=== PATIENT | male | born 1990 | race Caucasian/White ===

== ENCOUNTER 2016-05-12 07:37 | Inpatient (IN) | payer OTHER ==
[2016-05-12] VITALS (8 sets, daily range): BP systolic 131–162; BP diastolic 68–95; PULSE 102–127; RESP 18–21; TEMP 99.3–102.5; O2SAT 93–100
[~2016-05-12] VITALS: Ht 180.3 cm; Wt 169.0 kg
[~2016-05-12 07:37] MED LIST: AMOX500T2 PO
[2016-05-12] MEDS ORDERED: RELEMIS INH (07:57)
[2016-05-12] MEDS ORDERED: AMOX500C PO (07:57)
[2016-05-12] MEDS ORDERED: ACETAMINOPHEN 325 MG TAB PO ONE (08:15)
[2016-05-12] MEDS ORDERED: methylPREDNISolone SOD SUCC 125 MG/2 ML VIAL IV ONE (08:15)
[2016-05-12] MEDS ORDERED: SODIUM CHLOR 0.9% 1000 ML INJ 1,000 ML IV ONE ×3 (08:15)
[2016-05-12] MEDS ORDERED: SODIUM CHLORIDE 0.9% FLUSH 5 ML FLUSH IVF PRN (08:15)
[2016-05-12] MEDS ORDERED: cefTRIAXone INJ 2,000 MG in SODIUM CHLORIDE 0.9% INJ 100 ML IV ONE (08:15)
[2016-05-12] MEDS ORDERED: AZITHROMYCIN INJ 500 MG in SODIUM CHLOR 0.9% 250 ML INJ 250 ML IV ONE (08:15)
--- NOTE | 2016-05-12 08:19 | PD ---
HPI . Fever Chief Complaint: Cold / Flu Symptoms Time Seen by Provider: 08:04 Travel History International Travel<30 days: No Contact w/Intl Traveler<30days: No Traveled to known affect area: No History of Present Illness HPI Patient presents with a one-week history of fever, myalgias, congestion. He has had a cough. He states that he is very thirsty and has been having diarrhea. His mother reports that he was seen at [facility] [place] [facility] 5 days ago and was tested for flu. Flu test was negative. He was started on amoxicillin. Symptoms have persisted so his mother brings him here today for evaluation. [facility], LAT[facility] Past Medical History Medical History: Denies Significant Hx Blood Disorders: No Diminished Hearing: No Respiratory: Yes (PNA) Immunizations Current: Yes Tetanus Vaccination: < 5 Years Influenza Vaccination: No Past Surgical History Surgical History: No Previous Surgery Social History Alcohol Use: Yes (Occ.) Tobacco Use: Yes (03/09 PPD) Substance Use: Yes (Marijuana) Allergies-Medications (Allergen,Severity, Reaction): Coded Allergies: No Known Allergies (Verified , 05/12/16) Reported Meds & Prescriptions Reported Meds & Active Scripts Active Reported Relenza Inhalation Powder Blister (Zanamivir) 5 Mg/Blister Cap 10 Mg INH Q12HR Two inhalations = 10 mg Amoxicillin 500 Mg Cap 500 Mg PO TID Review of Systems Except as stated in HPI: all other systems reviewed are Neg General / Constitutional: Positive: Fever, Chills HENT: Positive: Congestion Respiratory: Positive: Cough, Shortness of Breath Gastrointestinal: Positive: Diarrhea Musculoskeletal: Positive: Myalgias Physical Exam Narrative GENERAL: Patient is awake and alert and in no acute distress. SKIN: Warm and dry. HEAD: Atraumatic. Normocephalic. EYES: Pupils equal and round. ENT: No nasal bleeding or discharge. Mucous membranes pink but dry. NECK: Trachea midline. Neck is supple. CARDIOVASCULAR: Tachycardic. Normal heart sounds. RESPIRATORY: No accessory muscle use. He has diffuse expiratory wheezing. GASTROINTESTINAL: Abdomen soft, non-tender, nondistended. MUSCULOSKELETAL: No obvious deformities. No edema. NEUROLOGICAL: Awake and alert. No obvious cranial nerve deficits. Motor grossly within normal limits. Normal speech. PSYCHIATRIC: Appropriate mood and affect; insight and judgment normal. Data Data Last Documented VS Vital Signs Date Time Temp Pulse Resp B/P Pulse Ox O2 Delivery O2 Flow Rate FiO2 3/7/17 10:23 102.5 118 20 162/76 97 Room Air Orders Basic Metabolic Panel (Bmp) (05/12/16 08:10) Complete Blood Count With Diff (05/12/16 08:10) Lactic Acid Sepsis Protocol (05/12/16 08:10) Urinalysis - C+S If Indicated (05/12/16 08:10) Blood Culture (05/12/16 08:10) Sputum Culture And Gram Stain (05/12/16 08:10) Chest, Single Ap (05/12/16 08:10) Iv Access Insert/Monitor (05/12/16 08:10) Oximetry (05/12/16 08:10) Sodium Chloride 0.9% Flush (Ns Flush) (05/12/16 08:15) Ceftriaxone Inj (Rocephin Inj) (05/12/16 08:15) Azithromycin Inj (Zithromax Inj) (05/12/16 08:15) Acetaminophen (Tylenol) (05/12/16 08:15) Albuterol-Ipratropium Neb (Duoneb Neb) (05/12/16 08:15) Methylprednisolone So Succ Inj (Solumedr (05/12/16 08:15) Sodium Chlor 0.9% 1000 Ml Inj (Ns 1000 M (05/12/16 08:15) Sodium Chlor 0.9% 1000 Ml Inj (Ns 1000 M (05/12/16 08:15) Sodium Chlor 0.9% 1000 Ml Inj (Ns 1000 M (05/12/16 08:15) Vital Signs (05/12/16 09:54) Oxygen Administration (05/12/16 09:56) Ibuprofen (Motrin) (05/12/16 10:30) Admit Order (Ed Use Only) (05/12/16 10:53) Labs Laboratory Tests Test 05/12/16 05/12/16 08:35 09:40 White Blood Count 7.8 TH/MM3 Red Blood Count 5.73 MIL/MM3 Hemoglobin 16.2 GM/DL Hematocrit 48.9 % Mean Corpuscular Volume 85.4 FL Mean Corpuscular Hemoglobin 28.3 PG Mean Corpuscular Hemoglobin 33.2 % Concent Red Cell Distribution Width 12.6 % Platelet Count 102 TH/MM3 Mean Platelet Volume 11.4 FL Neutrophils (%) (Auto) 82.0 % Lymphocytes (%) (Auto) 10.5 % Monocytes (%) (Auto) 5.4 % Eosinophils (%) (Auto) 0.0 % Basophils (%) (Auto) 2.1 % Neutrophils # (Auto) 6.4 TH/MM3 Lymphocytes # (Auto) 0.8 TH/MM3 Monocytes # (Auto) 0.4 TH/MM3 Eosinophils # (Auto) 0.0 TH/MM3 Basophils # (Auto) 0.2 TH/MM3 CBC Comment AUTO DIFF Differential Comment AUTO DIFF CONFIRMED Sodium Level 131 MEQ/L Potassium Level 3.9 MEQ/L Chloride Level 95 MEQ/L Carbon Dioxide Level 27.4 MEQ/L Anion Gap 9 MEQ/L Blood Urea Nitrogen 11 MG/DL Creatinine 1.00 MG/DL Estimat Glomerular Filtration 93 ML/MIN Rate Random Glucose 110 MG/DL Lactic Acid Level 1.1 mmol/L Calcium Level 8.3 MG/DL Urine Collection Type CLEAN CATCH Urine Color DARK-YELLOW Urine Turbidity CLEAR Urine pH 6.0 Urine Specific [place] 1.032 Urine Protein 100 mg/dL Urine Glucose (UA) NEG mg/dL Urine Ketones 15 mg/dL Urine Occult Blood LARGE Urine Nitrite NEG Urine Bilirubin NEG Urine Leukocyte Esterase NEG Urine RBC 0-3 /hpf Urine WBC 0-2 /hpf Urine Squamous Epithelial 0-5 /hpf Cells Urine Amorphous Sediment MOD Microscopic Urinalysis Comment CULT NOT INDICATED MDM Medical Decision Making Medical Screen Exam Complete: Yes Emergency Medical Condition: Yes Differential Diagnosis Differential diagnosis includes but is not limited to viral respiratory illness , bronchitis, pneumonia, allergies, CHF, asthma/COPD. Narrative Course Patient presents with a one-week history of fever, myalgias, cough and chest congestion and diarrhea. I will treat him presumptively for pneumonia with Rocephin and Zithromax. He will be given nebs and Solu-Medrol for the wheezing. He will be given 3 L of IV fluids. Chest x-ray to my interpretation shows a right lower lobe infiltrate. Last Impressions Chest X-Ray 05/12/16 0810 Signed Impressions: Service Date/Time: Thursday, May 12, 2016 08:37 - CONCLUSION: Right basilar pneumonia. Treatment and followup to resolution recommended. Grzegorz Villeda MD Sepsis Criteria SIRS Criteria (2 or more): Temp > 100.9 or < 96.8, Heart rate over 90, RR > 20 or PaCO2 < 32 Sepsis Criteria (SIRS+source): Infect source susp/known Criteria Outcome: Meets SIRS criteria, Meets sepsis criteria Physician Communication Physician Communication Discussed with Dr. Islas who asks that I admit the patient to Dr. Mishra. Diagnosis Primary Impression: Sepsis Qualified Code: A41.9 - Sepsis, due to unspecified organism Additional Impression: Pneumonia Qualified Code: J18.1 - Pneumonia of right lower lobe due to infectious organism Admitting Information Admitting Physician Requests: Admit Condition: Stable Luisa Villar MD May 12, 2016 08:19
[2016-05-12] MEDS: RESP: ALBUTEROL 2.5 MG/IPRATROPIUM 0.5 MG NEB (SCH) INH (08:20)
[2016-05-12 08:44] LABS: AUTOMATED NEUTROPHIL # 6.4 TH/MM3 (1.8-7.7); BASOPHIL # 0.2 TH/MM3 (0-0.2); BASOPHIL % 2.1 % (0.0-2.0); HEMATOCRIT 48.9 % (39.0-51.0); LYMPH % 10.5 % (9.0-44.0); LYMPHOCYTE # 0.8 TH/MM3 (1.0-4.8); MEAN CELL VOLUME 85.4 FL (80.0-100.0); MEAN CORPUSCULAR HEMOGLOBIN 28.3 PG (27.0-34.0); MEAN CORPUSCULAR HGB CONC 33.2 % (32.0-36.0); MONO % 5.4 % (0.0-8.0); PLATELET COUNT 102 TH/MM3 (150-450); RED BLOOD COUNT 5.73 MIL/MM3 (4.50-5.90); RED CELL DISTRIBUTION WIDTH 12.6 % (11.6-17.2); WHITE BLOOD COUNT 7.8 TH/MM3 (4.0-11.0)
[2016-05-12 08:46] LABS: HEMO FLAGS AUTO DIFF
[2016-05-12 08:49] LABS: POTASSIUM 3.9 MEQ/L (3.5-5.1)
[2016-05-12 08:52] LABS: BICARBONATE 27.4 MEQ/L (21.0-32.0)
[2016-05-12 09:12] LABS: SCAN/DIFF AUTO DIFF CONFIRMED
--- NOTE | 2016-05-12 09:12 | RADHPO ---
EXAM DATE/TIME: 05/12/2016 08:37 [facility] COMPARISON: No previous studies available for comparison. INDICATIONS : Fever/body ache. MEDICAL HISTORY : None. SURGICAL HISTORY : None. ENCOUNTER: Initial ACUITY: 4 - 6 days PAIN SCORE: 0/10 LOCATION: Bilateral chest FINDINGS: A single view of the chest demonstrates right basilar consolidation. Left lung clear. Heart normal in size. The cardiomediastinal contours are unremarkable. Osseous structures are intact. CONCLUSION: Right basilar pneumonia. Treatment and followup to resolution recommended. Grzegorz Villeda MD on May 12, 2016 at 9:10 Board Certified Radiologist. This report was verified electronically.
[2016-05-12 09:48] LABS: BLOOD, URINE LARGE (NEG); GLUCOSE,URINE NEG (NEG); KETONE, URINE 15 mg/dL (NEG); NITRITE,URINE NEG (NEG)
[2016-05-12 09:51] LABS: METHOD OF COLLECTION CLEAN CATCH; URINE COLOR DARK-YELLOW (YELLW/STRAW)
[2016-05-12 09:52] LABS: COMMENT (UR) CULT NOT INDICATED; CULTURE IF INDICATED CULT NOT INDICATED; RBC, URINE 0-3 /hpf (0-3); SQUAMOUS EPITHELIAL CELL URINE 0-5 /hpf (0-5); WBC, URINE 0-2 /hpf (0-5)
[2016-05-12] MEDS ORDERED: IBUPROFEN 800 MG TAB PO ONE (10:30)
[2016-05-12] MEDS ORDERED: SODIUM CHLORIDE 0.9% FLUSH 5 ML FLUSH FLUSH PRN (11:00)
[2016-05-12] MEDS ORDERED: NALOXONE HCL 0.4 MG/ML AMP IV PRN (11:00)
[2016-05-12] MEDS: PIPERACIL-TAZO 3.375 GM PREMIX 50 ML IV SCH ×3 (12:55→22:05)
[2016-05-12] MEDS: HEPARIN SODIUM - SQ 10,000 UNITS/ML VIAL SQ SCH ×2 (12:56→22:05)
[2016-05-12] MEDS: SODIUM CHLOR 0.9% 1000 ML INJ 1,000 ML IV SCH ×2 (12:56→21:12)
[2016-05-12] MEDS: AZITHROMYCIN INJ 500 MG in SODIUM CHLOR 0.9% 250 ML INJ 250 ML IV SCH (13:54)
[2016-05-12] MEDS: SODIUM CHLORIDE 0.9% FLUSH 5 ML FLUSH FLUSH SCH (20:00)
[2016-05-12] MEDS: RESP: ALBUTEROL 2.5 MG/3 ML NEB (SCH) NEB (20:00)
--- NOTE | 2016-05-12 20:43 | MH ---
cc: JUANA LEWIS DATE OF ADMISSION 05/12/2016 HISTORY OF PRESENT ILLNESS Mr. Rodrigues is a 25-year-old gentleman who presented to the emergency room for worsening malaise, fever and congestion. He states that last week he developed body aches and fevers, some congestion and some cough. He went to a walk-in clinic where he was told he had a flu and prescribed amoxicillin and Relenza. He states that he has been taking the medication for the last several days but did not improve. His symptoms, his fevers persisted. He was very weak. He states for the last four days he has not been strong enough to really eat that much. He has been coughing a little bit. He states he has had some nasal congestion as well as muscle pain. PAST MEDICAL HISTORY Significant for asthma as a child. PAST SURGICAL HISTORY Denies. ALLERGIES HE DENIES. MEDICATIONS Just the Relenza and the amoxicillin. SOCIAL HISTORY Habits, he rarely consumes alcohol. He smokes a pack in approximately two days. He will occasionally use marijuana. Social, he is involved in a relationship. He works as a bakery chef. Unfortunately he has had to be out of work for a work and that has him concerned. REVIEW OF SYSTEMS See HPI. He denies any weight change. He states his appetite was good until last four days when he was just too weak to eat. No trouble swallowing. No abdominal pain. No change in his bowel movements. He denies any chest pain or palpitations. He told me he did not have any wheezing with this, but when he received a breathing treatment downstairs it did seem to help him. He states he has been urinating well. There has not been a decrease in his urination. FAMILY HISTORY Noncontributory. PHYSICAL EXAMINATION VITAL SIGNS: Temperature is 99.3, pulse of 107, respirations 18, blood pressure is 153/95, pulse ox is 94% on room air. GENERAL: He is lying in the hospital bed. He looks fairly comfortable. At this point he tells me feels much better than when he came in. HEENT: He is normocephalic and traumatic. EOM is intact. He has a clear oral mucosa. NECK: His neck is supple. I could palpate no adenopathy. LUNGS: He has coarse lung sounds. I do not hear any obvious rhonchi or rales. HEART: His heart is tachycardiac. ABDOMEN: His abdomen is globose. He has got good bowel sounds. No rebound or guarding. EXTREMITIES: Show no clubbing, cyanosis or edema. LABORATORY DATA Lab work that was done when he came in showed a white count of 7.8, hemoglobin of 16.2, hematocrit of 48.9, platelet count was 102. Sodium was 131 with a potassium of 3.9, BUN was 11, creatinine was 1.0. UA shows large amount of blood. Cultures were done. IMAGING Chest x-ray showed a right basilar consolidation otherwise was normal. ASSESSMENT/PLAN A 25-year-old gentleman presenting with pneumonia. At this point he has been started on antibiotics. We will hydrate him overnight with IV fluids. Given his history of asthma and his lung sounds we will go ahead and put him on albuterol q.6h. Further recommendations as the case develops. MD RADHA Toure/KANDICE /8:06 PM /8:28 PM
[2016-05-12] MEDS ORDERED: [UNRECOGNIZED DRUG - OTHER] INH SCH (21:00)
[2016-05-12] MEDS: IBUPROFEN 800 MG TAB PO PRN (22:04)
[2016-05-12] MEDS: TEMAZEPAM 15 MG CAP PO PRN (22:08)
[2016-05-13] VITALS: BP 148/86; PULSE 80; RESP 20; TEMP 99.8; O2SAT 99
[2016-05-13 04:00] VITALS: BP 153/80; PULSE 96; RESP 20; TEMP 98.5
[2016-05-13] MEDS: PIPERACIL-TAZO 3.375 GM PREMIX 50 ML IV SCH ×4 (04:29→22:22)
[2016-05-13 06:30] LABS: AUTOMATED NEUTROPHIL # 7.6 TH/MM3 (1.8-7.7); HEMATOCRIT 45.9 % (39.0-51.0); LYMPH % 11.1 % (9.0-44.0); MEAN CELL VOLUME 86.5 FL (80.0-100.0); MEAN CORPUSCULAR HEMOGLOBIN 28.4 PG (27.0-34.0); MEAN CORPUSCULAR HGB CONC 32.8 % (32.0-36.0); MONO % 5.4 % (0.0-8.0); NEUT % 83.5 % (16.0-70.0); PLATELET COUNT 114 TH/MM3 (150-450); RED BLOOD COUNT 5.31 MIL/MM3 (4.50-5.90); RED CELL DISTRIBUTION WIDTH 12.3 % (11.6-17.2); WHITE BLOOD COUNT 9.1 TH/MM3 (4.0-11.0)
[2016-05-13 06:40] LABS: HEMO FLAGS DIFF FINAL
[2016-05-13 06:46] LABS: BICARBONATE 29.8 MEQ/L (21.0-32.0)
[2016-05-13 06:50] LABS: INDIRECT BILIRUBIN 0.5 MG/DL (0.0-0.8); TOTAL BILIRUBIN ADULT 0.7 MG/DL (0.2-1.0)
[2016-05-13] MEDS: SODIUM CHLOR 0.9% 1000 ML INJ 1,000 ML IV SCH ×2 (06:56→23:08)
[2016-05-13] MEDS: RESP: ALBUTEROL 2.5 MG/3 ML NEB (SCH) NEB ×3 (07:18→19:47)
--- NOTE | 2016-05-13 07:43 | MB ---
cc: HANS STONE MD, MAZHAR MD DATE OF CONSULTATION: 05/12/[address] Worley REASON FOR CONSULTATION Pneumonia, tachypnea, tachycardia. HISTORY OF PRESENT ILLNESS This is a 25-year-old white male who presented to the emergency department with cold and flu symptoms including fever, myalgias, cough, shortness of breath. The patient states that about a week ago he started feeling ill with achiness of the joints. He developed cough and had fever and sweats. He presented to the emergency department for evaluation today and had a temperature of 102.5 degrees, heart rate 118 and regular rhythm 20. Chest x-ray was performed which showed right basilar infiltrate. The patient states that he had coughed up initially light green sputum and then it turned brown in color. He has upper airway congestion as well. He was admitted and started on IV antibiotics. Sputum culture has been obtained and the result is not yet available. The Gram stain shows many white blood cells. Blood culture is pending. His white count is 7.8 and the differential shows 82% neutrophils. The patient tells me that currently he feels a lot better than he did five days ago. He appears somewhat tachypneic and had to talk very slowly because of mild respiratory discomfort during my interview. PAST MEDICAL HISTORY 1. Asthma. 2. History of pneumonia at age [age]. PAST SURGICAL HISTORY No previous surgery. ALLERGIES No known drug allergies. MEDICATIONS 1. Azithromycin. 2. Piperacillin/tazobactam. SOCIAL HISTORY The patient smokes a half pack of cigarettes a day. Occasional alcohol. Positive marijuana use. FAMILY HISTORY Noncontributory. REVIEW OF SYSTEMS GENERAL: Significant for fever and chills. HEAD, EYES, EARS, NOSE, AND THROAT: No headache. No visual blurring or diplopia. No difficulty swallowing or soreness of the throat. No nasal drainage. NECK: No pain or swelling. CARDIOVASCULAR: No palpitation or chest pain. RESPIRATORY: Significant for cough with sputum production and mild shortness of breath. GASTROINTESTINAL: No nausea, vomiting, abdominal pain or diarrhea. GENITOURINARY: No urgency, frequency or dysuria. HEMATOPOIETIC: No easy bruising or bleeding. ENDOCRINE: No polyuria or polydipsia. INTEGUMENTARY: No skin rash or itching. MUSCULOSKELETAL: Significant for joint aches and pains. NEUROLOGIC: No problems with coordination and no tremors. PSYCHIATRIC: No problems with mentation. The patient has clear mentation and appropriate affect. PHYSICAL EXAMINATION GENERAL: This is a morbidly obese male who is in no acute distress. He is alert and oriented. VITAL SIGNS: Temperature 99.7, blood pressure 131/95, respirations 18, heart rate 102. HEENT: Head is atraumatic. Extraocular movements grossly intact. Pupils reactive to light. No icterus. Oropharynx moist mucosa without any visible lesions. No thrush. NECK: Supple without adenopathy. LUNGS: Coarse rhonchi bilateral with mild wheezing. HEART: Regular rate and rhythm without audible murmurs, rubs or gallops. ABDOMEN: Obese. Positive bowel sounds. Soft. No tenderness appreciated. No palpable masses. RECTAL: Not performed. EXTREMITIES: No clubbing, cyanosis or edema. SKIN: Warm and moist. PSYCHIATRIC: The patient is calm and cooperative and has appropriate affect. LABORATORY DATA WBC 7.8, platelet count 102, hemoglobin 16.2, 82% neutrophils, 10% lymphocytes. Creatinine 1.0, BUN 11, estimated GFR 93, sodium 131. IMPRESSION 1. Pneumonia involving the right lung base. 2. Sepsis indicated by fever, tachycardia, tachypnea, potential source of infection with pneumonia being the source. RECOMMENDATIONS 1. Continue azithromycin. 2. Continue piperacillin/tazobactam. 3. Monitor sputum culture. 4. Monitor clinical response to treatment. 5. Monitor blood cultures. Thank you for this consultation. The patient's progress will be monitored and further recommendations will be given upon follow-up. Hans Stone MD FD/KATHERINE /4:55 PM /7:08 AM
[2016-05-13 08:00] VITALS: BP 164/68; PULSE 107; RESP 20; TEMP 99.1; O2SAT 92
[2016-05-13] MEDS: SODIUM CHLORIDE 0.9% FLUSH 5 ML FLUSH FLUSH SCH ×2 (09:00→21:00)
[2016-05-13] MEDS: HEPARIN SODIUM - SQ 10,000 UNITS/ML VIAL SQ SCH ×2 (11:00→22:22)
--- NOTE | 2016-05-13 11:42 | HHI.PR ---
Subjective Remarks Feeling better wants to go home. Objective Vitals Vital Signs Date Time Temp Pulse Resp B/P Pulse Ox O2 Delivery O2 Flow Rate FiO2 05/13/16 08:00 99.1 107 20 164/68 92 05/13/16 04:00 98.5 96 20 153/80 05/13/16 00:00 99.8 80 20 148/86 99 05/12/16 20:00 102.3 110 20 156/85 100 05/12/16 20:00 127 05/12/16 16:00 99.3 107 18 153/95 94 05/12/16 12:41 99.7 102 18 131/95 96 05/12/16 05/12/16 05/13/16 15:00 23:00 07:00 Intake Total 3590 ml 800 ml Balance 3590 ml 800 ml Intake Oral 240 ml IV Total 3350 ml 800 ml # Voids 2 # Bowel Movements 1 Result Diagram: 05/13/16 0535 05/13/16 0535 Imaging Last Impressions Chest X-Ray 05/12/16 0810 Signed Impressions: Service Date/Time: Thursday, May 12, 2016 08:37 - CONCLUSION: Right basilar pneumonia. Treatment and followup to resolution recommended. Grzegorz Villeda MD Objective Remarks Sitting at side of bed restless, nad lungs cta Heart slightly tachy ext no edema A/P Problem List: (1) Pneumonia Status: Acute Plan: clinically feeling better and responding to antibiotics.cont for now and monitor fever curve Discharge Planning discharge in next day or so pending response to treatment Problem Qualifiers (1) Pneumonia: Qualified Code: J18.1 - Pneumonia of right lower lobe due to infectious organism Salena Ordaz MD May 13, 2016 11:42
[2016-05-13 12:00] VITALS: BP 159/80; PULSE 102; RESP 20; TEMP 98.1; O2SAT 91
[2016-05-13] MEDS: AZITHROMYCIN INJ 500 MG in SODIUM CHLOR 0.9% 250 ML INJ 250 ML IV SCH (14:09)
--- NOTE | 2016-05-13 15:53 | HHI.IDPN ---
Note Infectious Disease Note Patient now coughing up yellow/green sputum. Still SOB. Became dyspneic when he sat up in bed. PAST MEDICAL HISTORY 1. Asthma. 2. History of pneumonia at age [age]. PAST SURGICAL HISTORY No previous surgery. ALLERGIES No known drug allergies. MEDICATIONS 1. Azithromycin. 2. Piperacillin/tazobactam. Current Medications Medications (Trade) Dose Ordered Sig/Lucinda Route PRN Reason Start Time Stop Time Status Last Admin Dose Admin IV Flush (NS Flush) 2 ml UNSCH PRN IVF FLUSH AFTER USING IV ACCESS 05/12/16 08:15 Patient Own Medication PT OWN MED: (Zanami... Q12HR INH Influenza 05/12/16 21:00 Hold IV Flush (NS Flush) 2 ml UNSCH PRN FLUSH FLUSH AFTER USING IV ACCESS 05/12/16 11:00 IV Flush (NS Flush) 2 ml BID FLUSH 05/12/16 21:00 Heparin Sodium (Porcine) (Heparin Inj) 5,000 units Q12H SQ 05/12/16 11:00 05/12/16 22:05 Naloxone HCl 0.4 mg 0.4 mg UNSCH PRN IV SEE LABEL COMMENTS 05/12/16 11:00 Piperacillin Sod/ Tazobactam Sod 50 ml @ 100 mls/hr Q6H IV 05/12/16 11:00 05/13/16 14:08 Azithromycin/ Sodium Chloride (Zithromax Inj/ NS 250 ml Inj) 250 ml @ 250 mls/hr Q24H IV 05/12/16 12:00 05/13/16 14:09 Temazepam (Restoril) 30 mg HS PRN PO INSOMNIA 05/12/16 20:00 05/12/16 22:08 Acetaminophen (Tylenol) 650 mg Q4H PRN PO FEVER OR PAIN 1-10 05/12/16 22:00 Ibuprofen (Motrin) 800 mg Q8H PRN PO FEVER OR PAIN 1-10 05/12/16 22:00 05/12/16 22:04 SOCIAL HISTORY The patient smokes a half pack of cigarettes a day. Occasional alcohol. Positive marijuana use. FAMILY HISTORY Noncontributory. OBJECTIVE: Vital Signs Date Time Temp Pulse Resp B/P Pulse Ox O2 Delivery O2 Flow Rate FiO2 05/13/16 12:00 98.1 102 20 159/80 91 05/13/16 08:00 99.1 107 20 164/68 92 05/13/16 04:00 98.5 96 20 153/80 05/13/16 00:00 99.8 80 20 148/86 99 05/12/16 20:00 102.3 110 20 156/85 100 05/12/16 20:00 127 05/12/16 16:00 99.3 107 18 153/95 94 05/12/16 05/12/16 05/13/16 15:00 23:00 07:00 Intake Total 3590 ml 800 ml Balance 3590 ml 800 ml Intake Oral 240 ml IV Total 3350 ml 800 ml # Voids 2 # Bowel Movements 1 Laboratory Tests Test 05/12/16 05/13/16 08:35 05:35 White Blood Count 7.8 TH/MM3 9.1 TH/MM3 Red Blood Count 5.73 MIL/MM3 5.31 MIL/MM3 Hemoglobin 16.2 GM/DL 15.1 GM/DL Hematocrit 48.9 % 45.9 % Mean Corpuscular Volume 85.4 FL 86.5 FL Mean Corpuscular Hemoglobin 28.3 PG 28.4 PG Mean Corpuscular Hemoglobin 33.2 % 32.8 % Concent Red Cell Distribution Width 12.6 % 12.3 % Platelet Count 102 TH/MM3 114 TH/MM3 Mean Platelet Volume 11.4 FL 10.9 FL Neutrophils (%) (Auto) 82.0 % 83.5 % Lymphocytes (%) (Auto) 10.5 % 11.1 % Monocytes (%) (Auto) 5.4 % 5.4 % Eosinophils (%) (Auto) 0.0 % 0.0 % Basophils (%) (Auto) 2.1 % 0.0 % Neutrophils # (Auto) 6.4 TH/MM3 7.6 TH/MM3 Lymphocytes # (Auto) 0.8 TH/MM3 1.0 TH/MM3 Monocytes # (Auto) 0.4 TH/MM3 0.5 TH/MM3 Eosinophils # (Auto) 0.0 TH/MM3 0.0 TH/MM3 Basophils # (Auto) 0.2 TH/MM3 0.0 TH/MM3 CBC Comment AUTO DIFF DIFF FINAL Differential Comment AUTO DIFF CONFIRMED Laboratory Tests Test 05/12/16 05/13/16 08:35 05:35 Sodium Level 131 MEQ/L 139 MEQ/L Potassium Level 3.9 MEQ/L 4.0 MEQ/L Chloride Level 95 MEQ/L 102 MEQ/L Carbon Dioxide Level 27.4 MEQ/L 29.8 MEQ/L Anion Gap 9 MEQ/L 7 MEQ/L Blood Urea Nitrogen 11 MG/DL 13 MG/DL Creatinine 1.00 MG/DL 0.71 MG/DL Estimat Glomerular Filtration 93 ML/MIN 137 ML/MIN Rate Random Glucose 110 MG/DL 117 MG/DL Lactic Acid Level 1.1 mmol/L Calcium Level 8.3 MG/DL 7.9 MG/DL Total Bilirubin 0.7 MG/DL Direct Bilirubin 0.2 MG/DL Indirect Bilirubin 0.5 MG/DL Aspartate Amino Transf 168 U/L (AST/SGOT) Alanine Aminotransferase 46 U/L (ALT/SGPT) Alkaline Phosphatase 37 U/L Total Protein 6.1 GM/DL Albumin 2.4 GM/DL Microbiology Date/Time Procedure Status Source Growth 05/12/16 06:20 Legionella Antigen Received Urine Clean Catch Pending 05/12/16 06:20 Streptococcus pneumoniae Antigen (M Received Urine Clean Catch Pending 05/12/16 08:30 Aerobic Blood Culture - Preliminary Resulted Blood Peripheral NO GROWTH IN 1 DAY 05/12/16 08:30 Anaerobic Blood Culture - Preliminary Resulted Blood Peripheral NO GROWTH IN 1 DAY 05/12/16 08:35 Aerobic Blood Culture - Preliminary Resulted Blood Peripheral NO GROWTH IN 1 DAY 05/12/16 08:35 Anaerobic Blood Culture - Preliminary Resulted Blood Peripheral NO GROWTH IN 1 DAY 05/12/16 08:50 Gram Stain - Final Resulted Sputum Expectorated Sputum 05/12/16 08:50 Sputum Culture - Preliminary Resulted Sputum Expectorated Sputum HEAVY GROWTH NORMAL RESPIRATORY JUANCARLOS... 05/13/16 06:20 Legionella Antigen - Final Complete Urine Clean Catch PRESUMPTIVE NEGATIVE FOR LEGIONELLA P... 05/13/16 06:20 Streptococcus pneumoniae Antigen (M - Final Complete Urine Clean Catch PRESUMPTIVE NEGATIVE FOR STREPTOCOCCU... PHYSICAL EXAMINATION GENERAL: No acute distress. He is alert and oriented. HEENT: Extraocular movements grossly intact. Pupils reactive to light. No icterus. Oropharynx moist mucosa without any visible lesions. No thrush. NECK: Supple without adenopathy. LUNGS: Coarse rhonchi bilaterally. HEART: Regular rate and rhythm without audible murmurs, rubs or gallops. ABDOMEN: Obese. Positive bowel sounds. Soft. No tenderness appreciated. No palpable masses. EXTREMITIES: No clubbing, cyanosis or edema. SKIN: Warm and moist. PSYCHIATRIC: The patient is calm and cooperative. IMPRESSION 1. Pneumonia involving the right lung base. 2. Sepsis indicated by fever, tachycardia, tachypnea, potential source of infection with pneumonia being the source. RECOMMENDATIONS 1. Continue azithromycin. 2. Continue piperacillin/tazobactam. 3. Repeat the CXR. 4. Repeat sputum culture. 5. Monitor clinical response to treatment. 6. Monitor blood cultures. Discussed with patient and his mom. He is still very sick. I do not think he is ready to go home yet. Geoff Long MD May 13, 2016 15:52
[2016-05-13 16:00] VITALS: BP 157/70; PULSE 106; RESP 20; TEMP 98.7; O2SAT 92
--- NOTE | 2016-05-13 16:17 | RADHPO ---
EXAM DATE/TIME: 05/13/2016 15:57 [facility] COMPARISON: CHEST SINGLE AP, May 12, 2016, 8:37. INDICATIONS : Shortness of breath, chest congestion for 2 days MEDICAL HISTORY : None. SURGICAL HISTORY : None. ENCOUNTER: Subsequent ACUITY: 2 days PAIN SCORE: 0/10 LOCATION: Bilateral chest FINDINGS: Portable AP view of the chest demonstrates a normal-sized cardiac silhouette. There is severe airspac e consolidation in the right lower lung zone. There may be left lower lobe airspace opacity as well. No pneumothorax is present. CONCLUSION: 1. Persistent severe and possibly mildly increased airspace consolidation in the right lower lung zon e. 2. Questionable consolidation is also present in the left lower lobe. Gilson Wells MD on May 13, 2016 at 16:13 Board Certified Radiologist. This report was verified electronically.
--- NOTE | 2016-05-13 18:52 | EKG ---
Date Performed: 05/12/2016 Time Performed: 11:06:48 PTAGE: 25 years EKG: Sinus tachycardia Inferior T wave changes may be normal for age Borderline ECG NO PREVIOUS TRACING DOCTOR: Kael Astorga Interpretating Date/Time 05/13/2016 18:45:49
[2016-05-13] MEDS: IBUPROFEN 800 MG TAB PO PRN (19:28)
[2016-05-13 20:00] VITALS: BP 155/77; PULSE 122; PULSE 138; RESP 20; TEMP 102.3; O2SAT 92
[2016-05-13] MEDS: ACETAMINOPHEN 325 MG TAB PO PRN (20:58)
[2016-05-14] VITALS (7 sets, daily range): BP systolic 111–147; BP diastolic 68–94; PULSE 94–108; RESP 20–22; TEMP 97.8–102.5; O2SAT 91–94
[2016-05-14] MEDS: PIPERACIL-TAZO 3.375 GM PREMIX 50 ML IV SCH ×2 (04:14→11:23)
[2016-05-14] MEDS: IBUPROFEN 800 MG TAB PO PRN ×2 (05:25→16:59)
[2016-05-14 06:32] LABS: AUTOMATED NEUTROPHIL # 5.1 TH/MM3 (1.8-7.7); BASOPHIL % 0.1 % (0.0-2.0); LYMPH % 12.6 % (9.0-44.0); LYMPHOCYTE # 0.9 TH/MM3 (1.0-4.8); MEAN CELL VOLUME 85.7 FL (80.0-100.0); MEAN CORPUSCULAR HGB CONC 33.8 % (32.0-36.0); MONO % 11.6 % (0.0-8.0); NEUT % 75.7 % (16.0-70.0); PLATELET COUNT 117 TH/MM3 (150-450); RED BLOOD COUNT 5.02 MIL/MM3 (4.50-5.90); RED CELL DISTRIBUTION WIDTH 12.5 % (11.6-17.2); WHITE BLOOD COUNT 6.8 TH/MM3 (4.0-11.0)
[2016-05-14 06:38] LABS: CHLORIDE 97 MEQ/L (98-107); POTASSIUM 3.9 MEQ/L (3.5-5.1); SODIUM (NA) 134 MEQ/L (136-145)
[2016-05-14 06:42] LABS: ANION GAP 9 MEQ/L (5-15); BICARBONATE 28.4 MEQ/L (21.0-32.0); BLOOD UREA NITROGEN 10 MG/DL (7-18)
[2016-05-14 06:45] LABS: ALT (GPT) 49 U/L (12-78); AST (GOT) 144 U/L (15-37); GLOMERULAR FILTRATION RATE 115 ML/MIN (>89)
[2016-05-14 06:46] LABS: TOTAL BILIRUBIN ADULT 0.6 MG/DL (0.2-1.0)
[2016-05-14 06:48] LABS: ALKALINE PHOSPHATASE 31 U/L (45-117)
[2016-05-14 07:15] LABS: HEMO FLAGS DIFF FINAL
[2016-05-14] MEDS: RESP: ALBUTEROL 2.5 MG/3 ML NEB (SCH) NEB ×3 (07:37→19:29)
[2016-05-14] MEDS: SODIUM CHLOR 0.9% 1000 ML INJ 1,000 ML IV SCH ×2 (08:30→09:33)
[2016-05-14] MEDS: SODIUM CHLORIDE 0.9% FLUSH 5 ML FLUSH FLUSH SCH ×2 (09:33→23:30)
[2016-05-14] MEDS: HEPARIN SODIUM - SQ 10,000 UNITS/ML VIAL SQ SCH ×2 (09:34→23:29)
[2016-05-14] MEDS: ACETAMINOPHEN 325 MG TAB PO PRN (11:22)
[2016-05-14] MEDS: AZITHROMYCIN INJ 500 MG in SODIUM CHLOR 0.9% 250 ML INJ 250 ML IV SCH (11:23)
--- NOTE | 2016-05-14 13:22 | HHI.PR ---
Subjective Remarks No new complaints, bringing up more when he coughs Objective Vitals Vital Signs Date Time Temp Pulse Resp B/P Pulse Ox O2 Delivery O2 Flow Rate FiO2 05/14/16 12:24 19 05/14/16 12:00 99.6 104 20 139/71 92 05/14/16 08:00 98.7 97 22 111/68 91 05/14/16 05:00 102.5 05/14/16 04:00 99.3 107 20 143/79 93 05/14/16 00:00 99.7 94 20 139/94 91 05/13/16 20:00 138 05/13/16 20:00 102.3 122 20 155/77 92 05/13/16 16:00 98.7 106 20 157/70 92 05/13/16 05/13/16 05/14/16 15:00 23:00 07:00 Intake Total 1150 ml 2100 ml 600 ml Balance 1150 ml 2100 ml 600 ml Intake Oral 650 ml 1950 ml 600 ml IV Total 500 ml 150 ml # Voids 3 6 4 # Bowel Movements 0 0 Result Diagram: 05/14/16 0555 05/14/16 0555 Imaging Last Impressions Chest X-Ray 05/13/16 0000 Signed Impressions: Service Date/Time: Friday, May 13, 2016 15:57 - CONCLUSION: 1. Persistent severe and possibly mildly increased airspace consolidation in the right lower lung zone. 2. Questionable consolidation is also present in the left lower lobe. Gilson Wells MD Last Impressions Chest X-Ray 05/12/16 0810 Signed Impressions: Service Date/Time: Thursday, May 12, 2016 08:37 - CONCLUSION: Right basilar pneumonia. Treatment and followup to resolution recommended. Grzegorz Villeda MD Objective Remarks Sitting in chair calmer today cough more congested sputum thick and yellow ronchi bilaterally, no wheezing Heart slightly tachy ext no edema A/P Problem List: (1) Pneumonia Status: Acute Plan: became febrile again last night and early am today cont antibiotics, sputum pending, will order CT scan (2) Sepsis Status: Acute Plan: cont iv antibiotics and fluids (3) Nicotine dependence Status: Chronic Plan: so far tolerating being without cigarettes encouraged to stop Problem Qualifiers (1) Pneumonia: Qualified Code: J18.1 - Pneumonia of right lower lobe due to infectious organism (2) Sepsis: Qualified Code: A41.9 - Sepsis, due to unspecified organism Salena Ordaz MD May 14, 2016 13:22
[2016-05-14] MEDS ORDERED: IOHEXOL 350 MG/ML 10 ML VIAL (for RAD DIAG) IV ONE (13:36)
--- NOTE | 2016-05-14 15:22 | RADHPO ---
EXAM DATE/TIME: 05/14/2016 13:26 [facility] COMPARISON: CHEST SINGLE AP, May 13, 2016, 15:57. CHEST SINGLE AP, May 12, 2016, 8:37. INDICATIONS : Abnormal chest x-ray. Short of breath. IV CONTRAST: 70 cc Omnipaque 350 (iohexol) IV RADIATION DOSE: 31.06 CTDIvol (mGy) MEDICAL HISTORY : Hypertension. Asthma. SURGICAL HISTORY : None. ENCOUNTER: Initial ACUITY: 2 days PAIN SCALE: 2/10 LOCATION: Bilateral chest TECHNIQUE: Volumetric scanning of the chest was performed. Using automated exposure control and adjustment of t he mA and/or kV according to patient size, radiation dose was kept as low as reasonably achievable to obtain optimal diagnostic quality images. FINDINGS: LUNGS: There is severe airspace consolidation with mild volume loss involving nearly the entire right middle and right lower lobe. In the right upper lobe there are geographic areas of groundglass attenuation. In the left lower lobe there is dense air space consolidation medially. The left upper lobe is clear . There is no pneumothorax. PLEURA: There is a small right pleural effusion and trace left pleural fluid. MEDIASTINUM: The heart and great vessels demonstrate no acute abnormality. There is an enlarged subcarinal lymph node measuring 2.6 cm in short axis diameter. AXILLAE: Within normal limits. No lymphadenopathy. SKELETAL: No acute osseous abnormality is identified. MISCELLANEOUS: The visualized upper abdominal organs demonstrate no acute abnormality. CONCLUSION: 1. Near-complete airspace consolidation of the right middle lobe and right lower lobe with mild assoc iated volume loss. There is also a small right pleural effusion. 2. Subsegmental dense airspace consolidation in the left lower lobe medially with trace left pleural fluid. 3. There are geographic areas of groundglass attenuation in the right upper lobe. Although nonspecifi c the imaging findings are highly suspicious for an infectious process. Suggest follow up imaging to confirm resolution. 4. There is an enlarged subcarinal lymph node that is presumably reactive secondary to the pulmonary process. Gilson Wells MD on May 14, 2016 at 15:09 Board Certified Radiologist. This report was verified electronically.
--- NOTE | 2016-05-14 15:39 | HHI.IDPN ---
Note Infectious Disease Note Patient now coughing up tonny reddish colored sputum. Still SOB particularly with exertion. Febrile to 102. Mild chest discomfort. CT of chest noted. dense consolidation. PAST MEDICAL HISTORY 1. Asthma. 2. History of pneumonia at age [age]. PAST SURGICAL HISTORY No previous surgery. ALLERGIES No known drug allergies. MEDICATIONS 1. Azithromycin. 2. Piperacillin/tazobactam. Current Medications Medications (Trade) Dose Ordered Sig/Lucinda Route PRN Reason Start Time Stop Time Status Last Admin Dose Admin Patient Own Medication PT OWN MED: (Zanami... Q12HR INH Influenza 05/12/16 21:00 Hold IV Flush (NS Flush) 2 ml UNSCH PRN FLUSH FLUSH AFTER USING IV ACCESS 05/12/16 11:00 IV Flush (NS Flush) 2 ml BID FLUSH 05/12/16 21:00 05/14/16 09:33 Heparin Sodium (Porcine) (Heparin Inj) 5,000 units Q12H SQ 05/12/16 11:00 05/14/16 09:34 Naloxone HCl 0.4 mg 0.4 mg UNSCH PRN IV SEE LABEL COMMENTS 05/12/16 11:00 Piperacillin Sod/ Tazobactam Sod 50 ml @ 100 mls/hr Q6H IV 05/12/16 11:00 05/14/16 11:23 Azithromycin/ Sodium Chloride (Zithromax Inj/ NS 250 ml Inj) 250 ml @ 250 mls/hr Q24H IV 05/12/16 12:00 05/14/16 11:23 Temazepam (Restoril) 30 mg HS PRN PO INSOMNIA 05/12/16 20:00 05/12/16 22:08 Acetaminophen (Tylenol) 650 mg Q4H PRN PO FEVER OR PAIN 1-10 05/12/16 22:00 05/14/16 11:22 Ibuprofen 800 mg 800 mg Q8H PRN PO FEVER OR PAIN 1-10 05/12/16 22:00 05/14/16 05:25 Sodium Chloride (NS 1000 ml Inj) 1,000 ml @ 100 mls/hr Q10H IV 05/13/16 22:30 05/14/16 09:33 SOCIAL HISTORY The patient smokes a half pack of cigarettes a day. Occasional alcohol. Positive marijuana use. FAMILY HISTORY Noncontributory. OBJECTIVE: Vital Signs Date Time Temp Pulse Resp B/P Pulse Ox O2 Delivery O2 Flow Rate FiO2 05/14/16 12:24 19 05/14/16 12:00 99.6 104 20 139/71 92 05/14/16 08:00 98.7 97 22 111/68 91 05/14/16 05:00 102.5 05/14/16 04:00 99.3 107 20 143/79 93 05/14/16 00:00 99.7 94 20 139/94 91 05/13/16 20:00 138 05/13/16 20:00 102.3 122 20 155/77 92 05/13/16 16:00 98.7 106 20 157/70 92 05/13/16 05/13/16 05/14/16 15:00 23:00 07:00 Intake Total 1150 ml 2100 ml 600 ml Balance 1150 ml 2100 ml 600 ml Intake Oral 650 ml 1950 ml 600 ml IV Total 500 ml 150 ml # Voids 3 6 4 # Bowel Movements 0 0 Laboratory Tests Test 05/13/16 05/14/16 05:35 05:55 White Blood Count 9.1 TH/MM3 6.8 TH/MM3 Red Blood Count 5.31 MIL/MM3 5.02 MIL/MM3 Hemoglobin 15.1 GM/DL 14.6 GM/DL Hematocrit 45.9 % 43.0 % Mean Corpuscular Volume 86.5 FL 85.7 FL Mean Corpuscular Hemoglobin 28.4 PG 29.0 PG Mean Corpuscular Hemoglobin 32.8 % 33.8 % Concent Red Cell Distribution Width 12.3 % 12.5 % Platelet Count 114 TH/MM3 117 TH/MM3 Mean Platelet Volume 10.9 FL 10.5 FL Neutrophils (%) (Auto) 83.5 % 75.7 % Lymphocytes (%) (Auto) 11.1 % 12.6 % Monocytes (%) (Auto) 5.4 % 11.6 % Eosinophils (%) (Auto) 0.0 % 0.0 % Basophils (%) (Auto) 0.0 % 0.1 % Neutrophils # (Auto) 7.6 TH/MM3 5.1 TH/MM3 Lymphocytes # (Auto) 1.0 TH/MM3 0.9 TH/MM3 Monocytes # (Auto) 0.5 TH/MM3 0.8 TH/MM3 Eosinophils # (Auto) 0.0 TH/MM3 0.0 TH/MM3 Basophils # (Auto) 0.0 TH/MM3 0.0 TH/MM3 CBC Comment DIFF FINAL DIFF FINAL Differential Comment Laboratory Tests Test 05/13/16 05/14/16 05:35 05:55 Sodium Level 139 MEQ/L 134 MEQ/L Potassium Level 4.0 MEQ/L 3.9 MEQ/L Chloride Level 102 MEQ/L 97 MEQ/L Carbon Dioxide Level 29.8 MEQ/L 28.4 MEQ/L Anion Gap 7 MEQ/L 9 MEQ/L Blood Urea Nitrogen 13 MG/DL 10 MG/DL Creatinine 0.71 MG/DL 0.83 MG/DL Estimat Glomerular Filtration 137 ML/MIN 115 ML/MIN Rate Random Glucose 117 MG/DL 95 MG/DL Calcium Level 7.9 MG/DL 7.6 MG/DL Total Bilirubin 0.7 MG/DL 0.6 MG/DL Direct Bilirubin 0.2 MG/DL Indirect Bilirubin 0.5 MG/DL Aspartate Amino Transf 168 U/L 144 U/L (AST/SGOT) Alanine Aminotransferase 46 U/L 49 U/L (ALT/SGPT) Alkaline Phosphatase 37 U/L 31 U/L Total Protein 6.1 GM/DL 5.6 GM/DL Albumin 2.4 GM/DL 2.2 GM/DL Microbiology Date/Time Procedure Status Source Growth 05/12/16 06:20 Legionella Antigen Received Urine Clean Catch Pending 05/12/16 06:20 Streptococcus pneumoniae Antigen (M Received Urine Clean Catch Pending 05/12/16 08:30 Aerobic Blood Culture - Preliminary Resulted Blood Peripheral NO GROWTH IN 2 DAYS 05/12/16 08:30 Anaerobic Blood Culture - Preliminary Resulted Blood Peripheral NO GROWTH IN 2 DAYS 05/12/16 08:35 Aerobic Blood Culture - Preliminary Resulted Blood Peripheral NO GROWTH IN 2 DAYS 05/12/16 08:35 Anaerobic Blood Culture - Preliminary Resulted Blood Peripheral NO GROWTH IN 2 DAYS 05/12/16 08:50 Gram Stain - Final Complete Sputum Expectorated Sputum 05/12/16 08:50 Sputum Culture - Final Complete Sputum Expectorated Sputum HEAVY GROWTH NORMAL RESPIRATORY JUANCARLOS 05/13/16 06:20 Legionella Antigen - Final Complete Urine Clean Catch PRESUMPTIVE NEGATIVE FOR LEGIONELLA P... 05/13/16 06:20 Streptococcus pneumoniae Antigen (M - Final Complete Urine Clean Catch PRESUMPTIVE NEGATIVE FOR STREPTOCOCCU... 05/13/16 16:00 Gram Stain - Final Resulted Sputum Expectorated Sputum 05/13/16 16:00 Sputum Culture - Preliminary Resulted Sputum Expectorated Sputum HEAVY GROWTH NORMAL RESPIRATORY JUANCARLOS... 05/14/16 09:15 Aerobic Blood Culture Received Blood Peripheral Pending 05/14/16 09:15 Anaerobic Blood Culture Received Blood Peripheral Pending 05/14/16 09:30 Aerobic Blood Culture Received Blood Peripheral Pending 05/14/16 09:30 Anaerobic Blood Culture Received Blood Peripheral Pending IMAGING: Chest CT 05/14/16 0000 Signed Impressions: Service Date/Time: May 13:26 - CONCLUSION: 1. Near-complete airspace consolidation of the right middle lobe and right lower lobe with mild associated volume loss. There is also a small right pleural effusion. 2. Subsegmental dense airspace consolidation in the left lower lobe medially with trace left pleural fluid. 3. There are geographic areas of groundglass attenuation in the right upper lobe. Although nonspecific the imaging findings are highly suspicious for an infectious process. Suggest follow up imaging to confirm resolution. 4. There is an enlarged subcarinal lymph node that is presumably reactive secondary to the pulmonary process. Gilson Wells MD Chest X-Ray 05/13/16 0000 Signed Impressions: Service Date/Time: Friday, May 13, 2016 15:57 - CONCLUSION: 1. Persistent severe and possibly mildly increased airspace consolidation in the right lower lung zone. 2. Questionable consolidation is also present in the left lower lobe. Gilson Wells MD PHYSICAL EXAMINATION GENERAL: No acute distress. Alert and oriented. HEENT: Extraocular movements grossly intact. Pupils reactive to light. No icterus. Oropharynx moist mucosa without any visible lesions. No thrush. NECK: Supple without adenopathy. LUNGS: Very coarse rhonchi bilaterally. HEART: Regular rate and rhythm without audible murmurs, rubs or gallops. ABDOMEN: Obese. Positive bowel sounds. Soft. No tenderness appreciated. No palpable masses. EXTREMITIES: No clubbing, cyanosis or edema. SKIN: Warm and moist. PSYCHIATRIC: The patient is calm and cooperative. IMPRESSION 1. Pneumonia involving the right lower, middle adn upper and also left lower lung. 2. Sepsis indicated by fever, tachycardia, tachypnea, potential source of infection with pneumonia being the source. RECOMMENDATIONS 1. Continue azithromycin. 2. Continue piperacillin/tazobactam. Increase dose. 3. Add Vancomycin. Pharmacy to assist dosing. 4. Repeat sputum culture. 5. Monitor clinical response to treatment. 6. Monitor new blood culture. 7. Monitor temps. 8. Monitor for development of empyema. Geoff Long MD May 14, 2016 15:39
[2016-05-14] MEDS ORDERED: Vancomycin Consult Pharmacy 1 EA OTHER SCH (15:45)
[2016-05-14] MEDS: PIPERACIL-TAZO 4.5 GM PREMIX 100 ML IV SCH ×2 (17:00→23:29)
[2016-05-14] MEDS: VANCOMYCIN INJ 2,000 MG in SODIUM CHLORID 0.9% 500 ML INJ 500 ML IV SCH (18:57)
[2016-05-14] MEDS: TEMAZEPAM 15 MG CAP PO PRN (23:29)
[2016-05-15] VITALS (7 sets, daily range): BP systolic 139–156; BP diastolic 83–95; PULSE 89–111; RESP 18–20; TEMP 97.7–100.9; O2SAT 94–98
[2016-05-15] MEDS: VANCOMYCIN INJ 2,000 MG in SODIUM CHLORID 0.9% 500 ML INJ 500 ML IV SCH ×3 (01:13→18:28)
[2016-05-15] MEDS: PIPERACIL-TAZO 4.5 GM PREMIX 100 ML IV SCH ×4 (04:14→22:35)
[2016-05-15] MEDS: SODIUM CHLOR 0.9% 1000 ML INJ 1,000 ML IV SCH ×2 (04:14→14:07)
[2016-05-15 06:37] LABS: CHLORIDE 99 MEQ/L (98-107); POTASSIUM 3.6 MEQ/L (3.5-5.1); SODIUM (NA) 135 MEQ/L (136-145)
[2016-05-15 06:41] LABS: ANION GAP 7 MEQ/L (5-15); BICARBONATE 28.7 MEQ/L (21.0-32.0); BLOOD UREA NITROGEN 6 MG/DL (7-18)
[2016-05-15 06:42] LABS: MEAN CELL VOLUME 86.8 FL (80.0-100.0); MEAN CORPUSCULAR HEMOGLOBIN 29.7 PG (27.0-34.0); MEAN CORPUSCULAR HGB CONC 34.3 % (32.0-36.0); PLATELET COUNT 117 TH/MM3 (150-450); RED BLOOD COUNT 4.72 MIL/MM3 (4.50-5.90); RED CELL DISTRIBUTION WIDTH 13.1 % (11.6-17.2); WHITE BLOOD COUNT 7.8 TH/MM3 (4.0-11.0)
[2016-05-15 06:44] LABS: ALT (GPT) 46 U/L (12-78); AST (GOT) 108 U/L (15-37); GLOMERULAR FILTRATION RATE 164 ML/MIN (>89); HEMO FLAGS AUTO DIFF
[2016-05-15 06:45] LABS: TOTAL BILIRUBIN ADULT 0.7 MG/DL (0.2-1.0)
[2016-05-15 06:47] LABS: ALKALINE PHOSPHATASE 30 U/L (45-117)
[2016-05-15 07:18] LABS: BANDS 1 % (0-6); NEUTROPHIL # MANUAL DIFF 5.3 TH/MM3 (1.8-7.7); POLYS (SEG NEUTROPHILS) 67 % (16-70); WBC DIFF SAMPLE 100
[2016-05-15] MEDS: RESP: ALBUTEROL 2.5 MG/3 ML NEB (SCH) NEB ×3 (07:18→19:59)
[2016-05-15 07:19] LABS: PLATELET ESTIMATE SMEAR LOW (NORMAL); PLATELET MORPHOLOGY NORMAL (NORMAL); SCAN/DIFF FINAL DIFF MANUAL
[2016-05-15] MEDS: SODIUM CHLORIDE 0.9% FLUSH 5 ML FLUSH FLUSH SCH ×2 (09:00→21:00)
[2016-05-15] MEDS: IBUPROFEN 800 MG TAB PO PRN (10:52)
[2016-05-15] MEDS: AZITHROMYCIN INJ 500 MG in SODIUM CHLOR 0.9% 250 ML INJ 250 ML IV SCH (10:53)
[2016-05-15] MEDS: HEPARIN SODIUM - SQ 10,000 UNITS/ML VIAL SQ SCH ×2 (10:53→22:44)
--- NOTE | 2016-05-15 12:29 | HHI.PR ---
Subjective Remarks still productive cough, ambulating montaño, Objective Vitals Vital Signs Date Time Temp Pulse Resp B/P Pulse Ox O2 Delivery O2 Flow Rate FiO2 05/15/16 08:00 100.9 111 18 150/83 94 05/15/16 08:00 106 05/15/16 07:22 96 Nasal Cannula 2.00 05/15/16 04:00 99.9 100 20 150/90 96 05/15/16 00:00 98.2 101 20 139/85 94 05/14/16 20:00 97.8 108 20 147/75 91 05/14/16 20:00 103 05/14/16 18:10 18 05/14/16 16:00 100.5 102 22 142/76 94 05/14/16 05/14/16 05/15/16 15:00 23:00 07:00 Intake Total 1500 ml 680 ml 980 ml Balance 1500 ml 680 ml 980 ml Intake Oral 1500 ml 680 ml 980 ml # Voids 6 2 4 # Bowel Movements 1 0 0 Result Diagram: 05/15/16 0524 05/15/16 0524 Imaging Last Impressions Chest CT 05/14/16 0000 Signed Impressions: Service Date/Time: May 13:26 - CONCLUSION: 1. Near-complete airspace consolidation of the right middle lobe and right lower lobe with mild associated volume loss. There is also a small right pleural effusion. 2. Subsegmental dense airspace consolidation in the left lower lobe medially with trace left pleural fluid. 3. There are geographic areas of groundglass attenuation in the right upper lobe. Although nonspecific the imaging findings are highly suspicious for an infectious process. Suggest follow up imaging to confirm resolution. 4. There is an enlarged subcarinal lymph node that is presumably reactive secondary to the pulmonary process. Gilson Wells MD Chest X-Ray 05/13/16 0000 Signed Impressions: Service Date/Time: Friday, May 13, 2016 15:57 - CONCLUSION: 1. Persistent severe and possibly mildly increased airspace consolidation in the right lower lung zone. 2. Questionable consolidation is also present in the left lower lobe. Gilson Wells MD Last Impressions Chest X-Ray 05/13/16 0000 Signed Impressions: Service Date/Time: Friday, May 13, 2016 15:57 - CONCLUSION: 1. Persistent severe and possibly mildly increased airspace consolidation in the right lower lung zone. 2. Questionable consolidation is also present in the left lower lobe. Gilson Wells MD Last Impressions Chest X-Ray 05/12/16 0810 Signed Impressions: Service Date/Time: Thursday, May 12, 2016 08:37 - CONCLUSION: Right basilar pneumonia. Treatment and followup to resolution recommended. Grzegorz Villeda MD Objective Remarks lying in bed cough congested ronchi bilaterally, no wheezing Heart slightly tachy ext no edema A/P Problem List: (1) Pneumonia Status: Acute Plan: significant consolidation on ct vancomycin added by ID and zosyn increased fever trend may be slightly lower (2) Sepsis Status: Acute Plan: cont iv antibiotics and fluids (3) Nicotine dependence Status: Chronic Plan: so far tolerating being without cigarettes encouraged to stop Problem Qualifiers (1) Pneumonia: Qualified Code: J18.1 - Pneumonia of right lower lobe due to infectious organism (2) Sepsis: Qualified Code: A41.9 - Sepsis, due to unspecified organism Salena Ordaz MD May 15, 2016 12:29
[2016-05-15] MEDS: ACETAMINOPHEN 325 MG TAB PO PRN ×3 (14:28→22:31)
--- NOTE | 2016-05-15 15:52 | HHI.IDPN ---
Note Infectious Disease Note Patient is drenched in sweats. continues to cough up colored sputum. On nasal O2. Still SOB particularly with exertion. Febrile to 100.9. CT of chest noted. dense consolidation R.lung. PAST MEDICAL HISTORY 1. Asthma. 2. History of pneumonia at age [age]. PAST SURGICAL HISTORY No previous surgery. ALLERGIES No known drug allergies. MEDICATIONS 1. Azithromycin. 2. Piperacillin/tazobactam. 3. vancomycin. SOCIAL HISTORY The patient smokes a half pack of cigarettes a day. Occasional alcohol. Positive marijuana use. FAMILY HISTORY Noncontributory. OBJECTIVE: Vital Signs Date Time Temp Pulse Resp B/P Pulse Ox O2 Delivery O2 Flow Rate FiO2 05/15/16 12:00 98.1 98 18 156/85 95 05/15/16 08:00 100.9 111 18 150/83 94 05/15/16 08:00 106 05/15/16 07:22 96 Nasal Cannula 2.00 05/15/16 04:00 99.9 100 20 150/90 96 05/15/16 00:00 98.2 101 20 139/85 94 05/14/16 20:00 97.8 108 20 147/75 91 05/14/16 20:00 103 05/14/16 18:10 18 05/14/16 16:00 100.5 102 22 142/76 94 05/14/16 05/14/16 05/15/16 15:00 23:00 07:00 Intake Total 1500 ml 680 ml 980 ml Balance 1500 ml 680 ml 980 ml Intake Oral 1500 ml 680 ml 980 ml # Voids 6 2 4 # Bowel Movements 1 0 0 Laboratory Tests Test 05/14/16 05/15/16 05:55 05:24 White Blood Count 6.8 TH/MM3 7.8 TH/MM3 Red Blood Count 5.02 MIL/MM3 4.72 MIL/MM3 Hemoglobin 14.6 GM/DL 14.0 GM/DL Hematocrit 43.0 % 41.0 % Mean Corpuscular Volume 85.7 FL 86.8 FL Mean Corpuscular Hemoglobin 29.0 PG 29.7 PG Mean Corpuscular Hemoglobin 33.8 % 34.3 % Concent Red Cell Distribution Width 12.5 % 13.1 % Platelet Count 117 TH/MM3 117 TH/MM3 Mean Platelet Volume 10.5 FL 10.7 FL Neutrophils (%) (Auto) 75.7 % % Lymphocytes (%) (Auto) 12.6 % % Monocytes (%) (Auto) 11.6 % % Eosinophils (%) (Auto) 0.0 % % Basophils (%) (Auto) 0.1 % % Neutrophils # (Auto) 5.1 TH/MM3 TH/MM3 Lymphocytes # (Auto) 0.9 TH/MM3 TH/MM3 Monocytes # (Auto) 0.8 TH/MM3 TH/MM3 Eosinophils # (Auto) 0.0 TH/MM3 TH/MM3 Basophils # (Auto) 0.0 TH/MM3 TH/MM3 CBC Comment DIFF FINAL AUTO DIFF Differential Comment FINAL DIFF MANUAL Differential Total Cells 100 Counted Neutrophils % (Manual) 67 % Band Neutrophils % 1 % Lymphocytes % 17 % Monocytes % 15 % Neutrophils # (Manual) 5.3 TH/MM3 Platelet Estimate LOW Platelet Morphology Comment NORMAL Laboratory Tests Test 05/14/16 05/15/16 05:55 05:24 Sodium Level 134 MEQ/L 135 MEQ/L Potassium Level 3.9 MEQ/L 3.6 MEQ/L Chloride Level 97 MEQ/L 99 MEQ/L Carbon Dioxide Level 28.4 MEQ/L 28.7 MEQ/L Anion Gap 9 MEQ/L 7 MEQ/L Blood Urea Nitrogen 10 MG/DL 6 MG/DL Creatinine 0.83 MG/DL 0.61 MG/DL Estimat Glomerular Filtration 115 ML/MIN 164 ML/MIN Rate Random Glucose 95 MG/DL 85 MG/DL Calcium Level 7.6 MG/DL 7.6 MG/DL Total Bilirubin 0.6 MG/DL 0.7 MG/DL Aspartate Amino Transf 144 U/L 108 U/L (AST/SGOT) Alanine Aminotransferase 49 U/L 46 U/L (ALT/SGPT) Alkaline Phosphatase 31 U/L 30 U/L Total Protein 5.6 GM/DL 5.5 GM/DL Albumin 2.2 GM/DL 2.0 GM/DL Microbiology Date/Time Procedure Status Source Growth 05/13/16 06:20 Legionella Antigen - Final Complete Urine Clean Catch PRESUMPTIVE NEGATIVE FOR LEGIONELLA P... 05/13/16 06:20 Streptococcus pneumoniae Antigen (M - Final Complete Urine Clean Catch PRESUMPTIVE NEGATIVE FOR STREPTOCOCCU... 05/13/16 16:00 Gram Stain - Final Complete Sputum Expectorated Sputum 05/13/16 16:00 Sputum Culture - Final Complete Sputum Expectorated Sputum HEAVY GROWTH NORMAL RESPIRATORY JUANCARLOS 05/14/16 09:15 Aerobic Blood Culture - Preliminary Resulted Blood Peripheral NO GROWTH IN 1 DAY 05/14/16 09:15 Anaerobic Blood Culture - Preliminary Resulted Blood Peripheral NO GROWTH IN 1 DAY 05/14/16 09:30 Aerobic Blood Culture - Preliminary Resulted Blood Peripheral NO GROWTH IN 1 DAY 05/14/16 09:30 Anaerobic Blood Culture - Preliminary Resulted Blood Peripheral NO GROWTH IN 1 DAY 05/14/16 15:00 Gram Stain - Final Resulted Sputum Expectorated Sputum 05/14/16 15:00 Sputum Culture - Preliminary Resulted Sputum Expectorated Sputum NO GROWTH IN 24 HOURS. IMAGING: Chest CT 05/14/16 0000 Signed Impressions: Service Date/Time: May 13:26 - CONCLUSION: 1. Near-complete airspace consolidation of the right middle lobe and right lower lobe with mild associated volume loss. There is also a small right pleural effusion. 2. Subsegmental dense airspace consolidation in the left lower lobe medially with trace left pleural fluid. 3. There are geographic areas of groundglass attenuation in the right upper lobe. Although nonspecific the imaging findings are highly suspicious for an infectious process. Suggest follow up imaging to confirm resolution. 4. There is an enlarged subcarinal lymph node that is presumably reactive secondary to the pulmonary process. Gilson Wells MD Chest X-Ray 05/13/16 0000 Signed Impressions: Service Date/Time: Friday, May 13, 2016 15:57 - CONCLUSION: 1. Persistent severe and possibly mildly increased airspace consolidation in the right lower lung zone. 2. Questionable consolidation is also present in the left lower lobe. Gilson Wells MD PHYSICAL EXAMINATION GENERAL: No acute distress. Alert and oriented. Sweating. HEENT: Extraocular movements grossly intact. Pupils reactive to light. No icterus. Oropharynx moist mucosa without any visible lesions. No thrush. NECK: Supple without adenopathy. LUNGS: Coarse rhonchi bilaterally. HEART: Regular rate and rhythm without audible murmurs, rubs or gallops. ABDOMEN: Obese. Positive bowel sounds. Soft. No tenderness appreciated. EXTREMITIES: No clubbing, cyanosis or edema. SKIN: Warm and moist. PSYCHIATRIC: The patient is calm and cooperative. IMPRESSION 1. Severe pneumonia involving the right lower, middle and upper and also left lower lung. Spoke to radiology about the CT scan. Need to observe for development of empyema. 2. Sepsis indicated by fever, tachycardia, tachypnea, potential source of infection with pneumonia being the source. 3. persistent fever. RECOMMENDATIONS 1. Continue azithromycin. 2. Continue piperacillin/tazobactam. Increase dose. 3. Continue Vancomycin. Pharmacy to assist dosing. 4. Monitor temps. 5. Monitor clinical response to treatment. 6. Monitor for development of empyema. Geoff Long MD May 15, 2016 15:52
[2016-05-15] MEDS ORDERED: PHARMACY ORDERED LAB XX ONE (17:45)
[2016-05-15] MEDS: TEMAZEPAM 15 MG CAP PO PRN (22:31)
[2016-05-16] VITALS (9 sets, daily range): BP systolic 133–165; BP diastolic 77–98; PULSE 87–102; RESP 20–24; TEMP 97.1–99.1; O2SAT 92–98
[2016-05-16] MEDS: SODIUM CHLOR 0.9% 1000 ML INJ 1,000 ML IV SCH ×2 (00:30→10:30)
[2016-05-16] MEDS: VANCOMYCIN INJ 2,000 MG in SODIUM CHLORID 0.9% 500 ML INJ 500 ML IV SCH ×3 (03:04→17:46)
[2016-05-16] MEDS: PIPERACIL-TAZO 4.5 GM PREMIX 100 ML IV SCH ×4 (05:44→23:07)
[2016-05-16] MEDS: RESP: ALBUTEROL 2.5 MG/3 ML NEB (SCH) NEB ×3 (07:45→19:32)
--- NOTE | 2016-05-16 07:49 | HHI.PR ---
Subjective Remarks Gradually improving. Has been ambulating in halls. Still has significant cough with phlegm production but overall feeling stronger. Objective Vitals Vital Signs Date Time Temp Pulse Resp B/P Pulse Ox O2 Delivery O2 Flow Rate FiO2 05/16/16 04:00 97.1 87 20 133/77 96 05/16/16 00:33 97.9 89 24 139/82 96 05/15/16 20:00 91 05/15/16 20:00 96 Nasal Cannula 2.00 05/15/16 20:00 97.7 92 20 147/86 95 05/15/16 16:00 97.8 89 18 154/95 98 05/15/16 12:00 98.1 98 18 156/85 95 05/15/16 08:00 100.9 111 18 150/83 94 05/15/16 08:00 106 05/15/16 05/15/16 05/16/16 15:00 23:00 07:00 Intake Total 720 ml 1140 ml Balance 720 ml 1140 ml Intake Oral 720 ml IV Total 1140 ml # Voids 4 4 GENERAL: Morbidly obese, alert and oriented, cooperative with exam. SKIN: Warm and dry. Multiple tattoos noted. HEAD: Normocephalic. EYES: No scleral icterus. No injection or drainage. NECK: Supple, trachea midline. No JVD or lymphadenopathy. CARDIOVASCULAR: Regular rate and rhythm without murmurs, gallops, or rubs. RESPIRATORY: Breath sounds equal bilaterally. Expiratory wheezes noted at end- expiratory phase bilateral mid lungs. Fair air movement. GASTROINTESTINAL: Abdomen soft, non-tender, nondistended. MUSCULOSKELETAL: No cyanosis, or edema. BACK: Nontender without obvious deformity. No CVA tenderness. Result Diagram: 05/15/16 0524 05/15/16 0524 Imaging Last Impressions Chest CT 05/14/16 0000 Signed Impressions: Service Date/Time: May 13:26 - CONCLUSION: 1. Near-complete airspace consolidation of the right middle lobe and right lower lobe with mild associated volume loss. There is also a small right pleural effusion. 2. Subsegmental dense airspace consolidation in the left lower lobe medially with trace left pleural fluid. 3. There are geographic areas of groundglass attenuation in the right upper lobe. Although nonspecific the imaging findings are highly suspicious for an infectious process. Suggest follow up imaging to confirm resolution. 4. There is an enlarged subcarinal lymph node that is presumably reactive secondary to the pulmonary process. Gilson Wells MD Chest X-Ray 05/13/16 0000 Signed Impressions: Service Date/Time: Friday, May 13, 2016 15:57 - CONCLUSION: 1. Persistent severe and possibly mildly increased airspace consolidation in the right lower lung zone. 2. Questionable consolidation is also present in the left lower lobe. Gilson Wells MD Last Impressions Chest X-Ray 05/13/16 0000 Signed Impressions: Service Date/Time: Friday, May 13, 2016 15:57 - CONCLUSION: 1. Persistent severe and possibly mildly increased airspace consolidation in the right lower lung zone. 2. Questionable consolidation is also present in the left lower lobe. Gilson Wells MD Last Impressions Chest X-Ray 05/12/16 0810 Signed Impressions: Service Date/Time: Thursday, May 12, 2016 08:37 - CONCLUSION: Right basilar pneumonia. Treatment and followup to resolution recommended. Grzegorz Villeda MD Objective Remarks lying in bed cough congested ronchi bilaterally, no wheezing Heart slightly tachy ext no edema Urinary Catheter: No Vascular Central Line Catheter: No A/P Problem List: (1) Pneumonia Status: Acute Plan: significant consolidation on ct vancomycin added by ID and zosyn increased Fever curve improving and patient clinically improving. Likely need 2 more days of IV antibiotics and hopefully convert to oral. Appreciate ID input. (2) Sepsis Status: Acute Plan: cont iv antibiotics and fluids (3) Nicotine dependence Status: Chronic Plan: so far tolerating being without cigarettes and no significant adverse withdrawal encouraged to stop smoking completely Discharge Planning Likely discharge in 2-3 days if oral antibiotic conversion effective Problem Qualifiers (1) Pneumonia: Qualified Code: J18.1 - Pneumonia of right lower lobe due to infectious organism (2) Sepsis: Qualified Code: A41.9 - Sepsis, due to unspecified organism Regino Garner MD PhD May 16, 2016 07:49
[2016-05-16] MEDS: SODIUM CHLORIDE 0.9% FLUSH 5 ML FLUSH FLUSH SCH ×2 (09:00→21:00)
[2016-05-16] MEDS: ACETAMINOPHEN 325 MG TAB PO PRN ×2 (10:17→23:11)
[2016-05-16] MEDS: HEPARIN SODIUM - SQ 10,000 UNITS/ML VIAL SQ SCH ×2 (12:41→23:07)
[2016-05-16] MEDS: AZITHROMYCIN INJ 500 MG in SODIUM CHLOR 0.9% 250 ML INJ 250 ML IV SCH (13:45)
[2016-05-16 14:44] LABS: MYCOPLASMA PNEUMONIAE S BY IFA Positive (Negative)
--- NOTE | 2016-05-16 16:39 | HHI.IDPN ---
Note Infectious Disease Note Patient feels better. Continues to cough up colored sputum. On nasal O2. Walked hallway several times today. Still has some dyspnea. Temp lower. Currently afebrile. PAST MEDICAL HISTORY 1. Asthma. 2. History of pneumonia at age [age]. PAST SURGICAL HISTORY No previous surgery. ALLERGIES No known drug allergies. MEDICATIONS 1. Azithromycin. 2. Piperacillin/tazobactam. 3. Vancomycin. SOCIAL HISTORY The patient smokes a half pack of cigarettes a day. Occasional alcohol. Positive marijuana use. FAMILY HISTORY Noncontributory. OBJECTIVE: Vital Signs Date Time Temp Pulse Resp B/P Pulse Ox O2 Delivery O2 Flow Rate FiO2 05/16/16 16:00 98.3 98 20 157/78 98 05/16/16 14:11 92 21 05/16/16 12:00 99.1 88 20 141/89 97 05/16/16 08:00 98.2 100 20 141/98 95 05/16/16 07:47 93 Nasal Cannula 2.00 05/16/16 04:00 97.1 87 20 133/77 96 05/16/16 00:33 97.9 89 24 139/82 96 05/15/16 20:00 91 05/15/16 20:00 96 Nasal Cannula 2.00 05/15/16 20:00 97.7 92 20 147/86 95 05/15/16 05/15/16 05/16/16 15:00 23:00 07:00 Intake Total 720 ml 1140 ml Balance 720 ml 1140 ml Intake Oral 720 ml IV Total 1140 ml # Voids 4 4 Laboratory Tests Test 05/15/16 05:24 White Blood Count 7.8 TH/MM3 Red Blood Count 4.72 MIL/MM3 Hemoglobin 14.0 GM/DL Hematocrit 41.0 % Mean Corpuscular Volume 86.8 FL Mean Corpuscular Hemoglobin 29.7 PG Mean Corpuscular Hemoglobin 34.3 % Concent Red Cell Distribution Width 13.1 % Platelet Count 117 TH/MM3 Mean Platelet Volume 10.7 FL Neutrophils (%) (Auto) % Lymphocytes (%) (Auto) % Monocytes (%) (Auto) % Eosinophils (%) (Auto) % Basophils (%) (Auto) % Neutrophils # (Auto) TH/MM3 Lymphocytes # (Auto) TH/MM3 Monocytes # (Auto) TH/MM3 Eosinophils # (Auto) TH/MM3 Basophils # (Auto) TH/MM3 CBC Comment AUTO DIFF Differential Total Cells 100 Counted Neutrophils % (Manual) 67 % Band Neutrophils % 1 % Lymphocytes % 17 % Monocytes % 15 % Neutrophils # (Manual) 5.3 TH/MM3 Differential Comment FINAL DIFF MANUAL Platelet Estimate LOW Platelet Morphology Comment NORMAL Laboratory Tests Test 05/15/16 05:24 Sodium Level 135 MEQ/L Potassium Level 3.6 MEQ/L Chloride Level 99 MEQ/L Carbon Dioxide Level 28.7 MEQ/L Anion Gap 7 MEQ/L Blood Urea Nitrogen 6 MG/DL Creatinine 0.61 MG/DL Estimat Glomerular Filtration 164 ML/MIN Rate Random Glucose 85 MG/DL Calcium Level 7.6 MG/DL Total Bilirubin 0.7 MG/DL Aspartate Amino Transf 108 U/L (AST/SGOT) Alanine Aminotransferase 46 U/L (ALT/SGPT) Alkaline Phosphatase 30 U/L Total Protein 5.5 GM/DL Albumin 2.0 GM/DL Microbiology Date/Time Procedure Status Source Growth 05/14/16 09:15 Aerobic Blood Culture - Preliminary Resulted Blood Peripheral NO GROWTH IN 2 DAYS 05/14/16 09:15 Anaerobic Blood Culture - Preliminary Resulted Blood Peripheral NO GROWTH IN 2 DAYS 05/14/16 09:30 Aerobic Blood Culture - Preliminary Resulted Blood Peripheral NO GROWTH IN 2 DAYS 05/14/16 09:30 Anaerobic Blood Culture - Preliminary Resulted Blood Peripheral NO GROWTH IN 2 DAYS 05/14/16 15:00 Gram Stain - Final Complete Sputum Expectorated Sputum 05/14/16 15:00 Sputum Culture - Final Complete Sputum Expectorated Sputum HEAVY GROWTH NORMAL RESPIRATORY [facility] IMAGING: Chest CT 05/14/16 0000 Signed Impressions: Service Date/Time: May 13:26 - CONCLUSION: 1. Near-complete airspace consolidation of the right middle lobe and right lower lobe with mild associated volume loss. There is also a small right pleural effusion. 2. Subsegmental dense airspace consolidation in the left lower lobe medially with trace left pleural fluid. 3. There are geographic areas of groundglass attenuation in the right upper lobe. Although nonspecific the imaging findings are highly suspicious for an infectious process. Suggest follow up imaging to confirm resolution. 4. There is an enlarged subcarinal lymph node that is presumably reactive secondary to the pulmonary process. Gilson Wells MD Chest X-Ray 05/13/16 0000 Signed Impressions: Service Date/Time: Friday, May 13, 2016 15:57 - CONCLUSION: 1. Persistent severe and possibly mildly increased airspace consolidation in the right lower lung zone. 2. Questionable consolidation is also present in the left lower lobe. Gilson Wells MD PHYSICAL EXAMINATION GENERAL: No acute distress. Alert and oriented. Sweating. HEENT: Extraocular movements grossly intact. Pupils reactive to light. No icterus. Oropharynx moist mucosa without any visible lesions. No thrush. NECK: Supple without adenopathy. LUNGS: Coarse rhonchi persist bilaterally. HEART: Regular rate and rhythm without audible murmurs, rubs or gallops. ABDOMEN: Obese. Positive bowel sounds. Soft. Non tender. EXTREMITIES: No clubbing, cyanosis or edema. SKIN: Warm and moist. PSYCHIATRIC: Calm and cooperative. IMPRESSION 1. Severe pneumonia involving the right lower, middle and upper and also left lower lung. Spoke to radiology about the CT scan. Need to observe for development of empyema. 2. Sepsis indicated by fever, tachycardia, tachypnea, potential source of infection with pneumonia being the source. 3. persistent fever. Temp now lower. RECOMMENDATIONS 1. Continue azithromycin. 2. Continue piperacillin/tazobactam. 3. Continue Vancomycin. 4. Repeat the CXR in am. 5. Monitor temps. 6. Monitor clinical response to treatment. 7. Monitor for development of empyema. Geoff Long MD May 16, 2016 16:39
[2016-05-16] MEDS: TEMAZEPAM 15 MG CAP PO PRN (23:07)
[2016-05-17] VITALS (9 sets, daily range): BP systolic 124–156; BP diastolic 79–119; PULSE 75–97; RESP 18–20; TEMP 97.3–99.6; O2SAT 92–100
--- NOTE | 2016-05-17 00:50 | RADHPO ---
EXAM DATE/TIME: 05/17/2016 00:20 [facility] COMPARISON: CT THORAX W CONTRAST, May 14, 2016, 13:26. CHEST SINGLE AP, May 13, 2016, 15:57. INDICATIONS : Short of breath. MEDICAL HISTORY : Pneumonia. SURGICAL HISTORY : None. ENCOUNTER: Subsequent ACUITY: 1 week PAIN SCORE: 2/10 LOCATION: Bilateral chest FINDINGS: There is persistent dense consolidation involving the right middle and right lower lobe causing loss of delineation of the right hemidiaphragm and right heart border. Size and configuration unchanged f rom prior. The left lung is clear. The heart is similar configuration the prior examination. CONCLUSION: Dense consolidation right middle and right lower lobe, unchanged from prior. Sergio Snow MD on May 17, 2016 at 0:47 Board Certified Radiologist. This report was verified electronically.
[2016-05-17] MEDS ORDERED: PHARMACY ORDERED LAB XX ONE (01:45)
[2016-05-17] MEDS: VANCOMYCIN INJ 2,000 MG in SODIUM CHLORID 0.9% 500 ML INJ 500 ML IV SCH ×3 (03:21→17:26)
[2016-05-17] MEDS: SODIUM CHLOR 0.9% 1000 ML INJ 1,000 ML IV SCH ×3 (06:30→16:30)
[2016-05-17] MEDS: PIPERACIL-TAZO 4.5 GM PREMIX 100 ML IV SCH ×3 (06:42→16:35)
--- NOTE | 2016-05-17 07:11 | HHI.PR ---
Subjective Remarks Overall feeling better. Has been ambulating freely about his room and in the hallways at times. Decreased cough but still with significant production of phlegm. Desires discharge home when possible. Objective Vitals Vital Signs Date Time Temp Pulse Resp B/P Pulse Ox O2 Delivery O2 Flow Rate FiO2 05/17/16 04:01 98.2 92 18 148/88 92 05/17/16 00:11 18 05/17/16 00:02 98.7 97 20 152/91 93 05/16/16 20:35 99.1 102 22 165/93 96 05/16/16 19:32 98 Nasal Cannula 2.00 05/16/16 16:00 98.3 98 20 157/78 98 05/16/16 14:11 92 21 05/16/16 12:00 99.1 88 20 141/89 97 05/16/16 08:00 98.2 100 20 141/98 95 05/16/16 07:47 93 Nasal Cannula 2.00 05/16/16 05/16/16 05/17/16 15:00 23:00 07:00 Intake Total 720 ml 480 ml Balance 720 ml 480 ml Intake Oral 720 ml 480 ml # Voids 3 2 2 # Bowel Movements 1 GENERAL: Lying in exam bed. Morbidly obese, alert and oriented, cooperative with exam. SKIN: Warm and dry. Multiple tattoos noted. HEAD: Normocephalic. EYES: No scleral icterus. No injection or drainage. NECK: Supple, trachea midline. No JVD or lymphadenopathy. CARDIOVASCULAR: Regular rate and rhythm without murmurs, gallops, or rubs. RESPIRATORY: Breath sounds equal bilaterally. Expiratory wheezes noted on the right at end-expiratory phase. Improved air movement. GASTROINTESTINAL: Abdomen soft, non-tender, nondistended. MUSCULOSKELETAL: No cyanosis, or edema. BACK: Nontender without obvious deformity. No CVA tenderness. Result Diagram: 05/15/1624 05/15/1624 Imaging Last Impressions Chest CT 05/14/16 0000 Signed Impressions: Service Date/Time: May 13:26 - CONCLUSION: 1. Near-complete airspace consolidation of the right middle lobe and right lower lobe with mild associated volume loss. There is also a small right pleural effusion. 2. Subsegmental dense airspace consolidation in the left lower lobe medially with trace left pleural fluid. 3. There are geographic areas of groundglass attenuation in the right upper lobe. Although nonspecific the imaging findings are highly suspicious for an infectious process. Suggest follow up imaging to confirm resolution. 4. There is an enlarged subcarinal lymph node that is presumably reactive secondary to the pulmonary process. Gilson Wells MD Chest X-Ray 05/13/16 0000 Signed Impressions: Service Date/Time: Friday, May 13, 2016 15:57 - CONCLUSION: 1. Persistent severe and possibly mildly increased airspace consolidation in the right lower lung zone. 2. Questionable consolidation is also present in the left lower lobe. Gilson Wells MD Last Impressions Chest X-Ray 05/13/16 0000 Signed Impressions: Service Date/Time: Friday, May 13, 2016 15:57 - CONCLUSION: 1. Persistent severe and possibly mildly increased airspace consolidation in the right lower lung zone. 2. Questionable consolidation is also present in the left lower lobe. Gilson Wells MD Last Impressions Chest X-Ray 05/12/16 0810 Signed Impressions: Service Date/Time: Thursday, May 12, 2016 08:37 - CONCLUSION: Right basilar pneumonia. Treatment and followup to resolution recommended. Grzegorz Villeda MD Urinary Catheter: No Vascular Central Line Catheter: No A/P Problem List: (1) Pneumonia Status: Acute Plan: significant consolidation on ct. chest x-ray unchanged. vancomycin added by ID and zosyn increased Fever curve improving and patient clinically improving. Hopefully can convert to oral antibiotics today and possible discharge home tomorrow depending on his response. Appreciate ID input. (2) Sepsis Status: Acute Plan: cont iv antibiotics and fluids Hopefully convert to oral antibiotics today. We'll attempt to discuss with ID later. (3) Nicotine dependence Status: Chronic Plan: so far tolerating being without cigarettes and no significant adverse withdrawal encouraged to stop smoking completely Discharge Planning Likely discharge in 1-2 days if oral antibiotic conversion effective Problem Qualifiers (1) Pneumonia: Qualified Code: J18.1 - Pneumonia of right lower lobe due to infectious organism (2) Sepsis: Qualified Code: A41.9 - Sepsis, due to unspecified organism Regino Garner MD PhD May 17, 2016 07:11
--- NOTE | 2016-05-17 08:06 | RADHPO ---
EXAM DATE/TIME: 05/17/2016 07:45 [facility] COMPARISON: No previous studies available for comparison. INDICATIONS : Pneumonia, short of breath MEDICAL HISTORY : None. SURGICAL HISTORY : None. ENCOUNTER: Subsequent ACUITY: 4 - 6 days PAIN SCORE: 0/10 LOCATION: Bilateral chest FINDINGS: The heart size is normal. There is increased density at the right lower lung involving the right midd le lobe. There is mild increased density at the medial left base. CONCLUSION: Increased density the right base represent combination of atelectasis and consolidation in the right middle lobe, some degree of right effusion needs to be considered. There is minimal atelectasis or co nsolidation at the medial left base. Gilson Del Cid MD on May 17, 2016 at 8:02 Board Certified Radiologist. This report was verified electronically.
[2016-05-17 08:29] LABS: ALKALINE PHOSPHATASE 33 U/L (45-117); ALT (GPT) 46 U/L (12-78); ANION GAP 7 MEQ/L (5-15); AST (GOT) 64 U/L (15-37); BLOOD UREA NITROGEN 4 MG/DL (7-18); CHLORIDE 108 MEQ/L (98-107); GLOMERULAR FILTRATION RATE 197 ML/MIN (>89); POTASSIUM 3.7 MEQ/L (3.5-5.1); SODIUM (NA) 143 MEQ/L (136-145); TOTAL BILIRUBIN ADULT 0.7 MG/DL (0.2-1.0)
[2016-05-17] MEDS: SODIUM CHLORIDE 0.9% FLUSH 5 ML FLUSH FLUSH SCH ×2 (09:00→20:09)
[2016-05-17] MEDS ORDERED: RESP: ALBUTEROL 2.5 MG/3 ML NEB (PRN) NEB (11:00)
[2016-05-17] MEDS: HEPARIN SODIUM - SQ 10,000 UNITS/ML VIAL SQ SCH ×2 (11:17→22:24)
[2016-05-17] MEDS: AZITHROMYCIN INJ 500 MG in SODIUM CHLOR 0.9% 250 ML INJ 250 ML IV SCH (12:27)
--- NOTE | 2016-05-17 16:42 | HHI.FF ---
Infusion Therapy Location of Infusion Therapy: [facility] IV Infusion Order Patient Information Patient Weight 168.8 kg Diagnosis: (1) Pneumonia (2) Sepsis Coded Allergies: No Known Allergies (Verified , 05/12/16) Administer Medication Ceftaroline 600 mg IV q 12 hours Stop Treatment: Jun 01, 2016 Additional Information Venous access: PICC Line Additional Instructions [x] Peripheral flush and dressing changes per protocol [x] Implanted port and central gasoline tester: * Implanted port: 10 ml Normal Saline followed by 5 ml Heparin 100 units/ml Heparin flush after each use and monthly to maintain. [] May leave port accessed during therapy. [] May leave peripheral site accessed for duration of therapy. [x] If patient has SOB or respiratory distress, check oxygen saturation. If less than 90% or clinical signs of respiratory distress, administer oxygen at 2 L/min. via nasal cannula and notify physician. [x] Anaphylaxis/Reaction orders: * Stop infusion. * Keep IV line open with saline flush. * Notify physician. * Monitor vital signs every 15 minutes until symptoms resolve. * Check Oxygen saturation; Oxygen at 2 L/min. via nasal cannula if less than 90% or clinical signs of respiratory distress. * Administer diphenhydramine (Benadryl) 25 mg IV STAT, (unless patient has received as pre-med). May repeat once, if necessary. * Solu-Cortef 250 mg IVP over 30-60 seconds, use 100 mg vials for each dissolution. * Epinephrine (1mg/1 ml) 0.3 mg subcutaneously or IVP now with any signs of respiratory distress. * Check with physician for new additional pre-med orders if patient is re- challenged or re-treated. [x] May remove PICC line when treatment complete, after confirming with Physician. [x] If the patient is admitted to the hospital, the ED, or transferred via [facility] , complete transfer form including medication reconciliation order sheet. Laboratory Tests Weekly Labs: BMP, CBC w/diff Geoff Long MD May 17, 2016 16:42
[2016-05-17] MEDS ORDERED: LEVA750T PO (16:46)
--- NOTE | 2016-05-17 16:58 | HHI.IDPN ---
Note Infectious Disease Note Patient feels better. Anxious. Want's to go home. notes family issues which he has to attend to. Walked hallway several times today. Still has some dyspnea. Afebrile. Denies chills. Denies chest pain. Repeat CXR noted. PAST MEDICAL HISTORY 1. Asthma. 2. History of pneumonia at age [age]. PAST SURGICAL HISTORY No previous surgery. ALLERGIES No known drug allergies. MEDICATIONS 1. Azithromycin. 2. Piperacillin/tazobactam. 3. Vancomycin. SOCIAL HISTORY The patient smokes a half pack of cigarettes a day. Occasional alcohol. Positive marijuana use. FAMILY HISTORY Noncontributory. OBJECTIVE: Vital Signs Date Time Temp Pulse Resp B/P Pulse Ox O2 Delivery O2 Flow Rate FiO2 05/17/16 16:17 95 21 05/17/16 16:00 98.5 89 20 155/90 95 05/17/16 12:00 99.6 88 20 144/86 95 05/17/16 09:48 94 21 05/17/16 08:00 97.3 90 20 124/79 100 05/17/16 07:30 97 Nasal Cannula 2.00 05/17/16 04:01 98.2 92 18 148/88 92 05/17/16 00:11 18 05/17/16 00:02 98.7 97 20 152/91 93 05/16/16 20:35 99.1 102 22 165/93 96 05/16/16 19:32 98 Nasal Cannula 2.00 05/16/16 05/16/16 05/17/16 15:00 23:00 07:00 Intake Total 720 ml 480 ml Balance 720 ml 480 ml Intake Oral 720 ml 480 ml # Voids 3 2 2 # Bowel Movements 1 Laboratory Tests Test 05/17/16 06:40 Sodium Level 143 MEQ/L Potassium Level 3.7 MEQ/L Chloride Level 108 MEQ/L Carbon Dioxide Level 28.0 MEQ/L Anion Gap 7 MEQ/L Blood Urea Nitrogen 4 MG/DL Creatinine 0.52 MG/DL Estimat Glomerular Filtration 197 ML/MIN Rate Random Glucose 89 MG/DL Calcium Level 7.9 MG/DL Total Bilirubin 0.7 MG/DL Aspartate Amino Transf 64 U/L (AST/SGOT) Alanine Aminotransferase 46 U/L (ALT/SGPT) Alkaline Phosphatase 33 U/L Total Protein 5.8 GM/DL Albumin 2.1 GM/DL IMAGING: Chest CT 05/14/16 0000 Signed Impressions: Service Date/Time: May 13:26 - CONCLUSION: 1. Near-complete airspace consolidation of the right middle lobe and right lower lobe with mild associated volume loss. There is also a small right pleural effusion. 2. Subsegmental dense airspace consolidation in the left lower lobe medially with trace left pleural fluid. 3. There are geographic areas of groundglass attenuation in the right upper lobe. Although nonspecific the imaging findings are highly suspicious for an infectious process. Suggest follow up imaging to confirm resolution. 4. There is an enlarged subcarinal lymph node that is presumably reactive secondary to the pulmonary process. Gilson Wells MD Chest X-Ray 05/13/16 0000 Signed Impressions: Service Date/Time: Friday, May 13, 2016 15:57 - CONCLUSION: 1. Persistent severe and possibly mildly increased airspace consolidation in the right lower lung zone. 2. Questionable consolidation is also present in the left lower lobe. Gilson Wells MD PHYSICAL EXAMINATION GENERAL: No acute distress. Alert and oriented. Anxious. HEENT: Extraocular movements grossly intact. Pupils reactive to light. No icterus. Oropharynx moist mucosa without any visible lesions. No thrush. NECK: Supple without adenopathy. LUNGS: Coarse rhonchi persist at the r. lung and left base. HEART: Regular rate and rhythm without audible murmurs, rubs or gallops. ABDOMEN: Obese. Positive bowel sounds. Soft. Non tender. EXTREMITIES: No clubbing, cyanosis or edema. SKIN: Warm and moist. PSYCHIATRIC: Calm and cooperative. IMPRESSION 1. Severe pneumonia involving the right lower, middle and upper and also left lower lung. Dense consolidation remain at the r. lower and middle lobe. Need to observe for development of empyema. 2. Sepsis indicated by fever, tachycardia, tachypnea, potential source of infection with pneumonia being the source. 3. Persistent fever. Temp now normal. RECOMMENDATIONS 1. Change antibiotics to a regimen for outpatient treatment. Orders written for case management to arrange. 2. PIC line. Orders written. 3. IV Ceftaroline x 2 weeks. Orders written for discharge. 4. PO Levaquin x 2 weeks. Order written for discharge. 5. Stop piperacillin/tazobactam. 6. Stop Vancomycin tomorrow. 7. Stop Azithromycin. 8. Monitor temps. 9. Follow up appointment with Dr. Diego AIKEN in 1 week. 10. Patient notified to return to ED or call his primary physician if he develops fever or severe chest pain. Geoff Long MD May 17, 2016 16:58
[2016-05-17] MEDS ORDERED: CEFTAROLINE INJ 600 MG in SODIUM CHLORIDE 0.9% INJ 100 ML IV SCH (18:00)
[2016-05-17] MEDS: CEFTAROLINE INJ 600 MG in SODIUM CHLORIDE 0.9% INJ 100 ML IV SCH (21:39)
[2016-05-18] VITALS (8 sets, daily range): BP systolic 152–184; BP diastolic 94–112; PULSE 89–99; RESP 18–20; TEMP 96.5–98.7; O2SAT 94–98
[2016-05-18] MEDS: SODIUM CHLOR 0.9% 1000 ML INJ 1,000 ML IV SCH ×3 (02:11→20:42)
[2016-05-18] MEDS: VANCOMYCIN INJ 2,000 MG in SODIUM CHLORID 0.9% 500 ML INJ 500 ML IV SCH ×2 (02:11→11:55)
[2016-05-18] MEDS: CEFTAROLINE INJ 600 MG in SODIUM CHLORIDE 0.9% INJ 100 ML IV SCH ×2 (09:04→20:41)
[2016-05-18] MEDS: SODIUM CHLORIDE 0.9% FLUSH 5 ML FLUSH FLUSH SCH ×2 (09:05→20:41)
[2016-05-18] MEDS: HEPARIN SODIUM - SQ 10,000 UNITS/ML VIAL SQ SCH ×2 (11:00→22:34)
[2016-05-18] MEDS: LEVOFLOXACIN 750 MG TAB PO SCH (11:43)
[2016-05-18] MEDS ORDERED: VANCOMYCIN INJ 2,000 MG in SODIUM CHLORID 0.9% 500 ML INJ 500 ML IV SCH (11:45)
[2016-05-18] MEDS ORDERED: CEFTAR600P IV (12:38)
--- NOTE | 2016-05-18 12:38 | HHI.DS ---
Discharge Summary Admission Date May 12, 2016 at 10:54 Discharge Date: May 18, 2016 Admitting Diagnosis Pneumonia (1) Pneumonia (2) Sepsis Diagnosis: Principal (3) Nicotine dependence Diagnosis: Secondary Consultants Infectious disease (Dr Mcmahan) Brief History 25 year old white male [facility] presented to the ER for worsening malaise, congestion and fever. About one week prior to admission he started experiencing body aches and fevers and some cough and congestion. He went to a walk-in clinic where he was told he had the flu and was given Amoxicillin and Relenza. He however did not improve with those medications and his fever persisted and he became weaker and was not eating much. He stated he was coughing a little bit with some nasal congestion. He is a smoker and smoked around 1/2 ppd. He had asthma as a child otherwise has been healthy. His chest x-ray on admission showed a right basilar consolidation and he was admitted for IV antibiotic therapy. CBC/BMP: 05/15/16 0524 05/17/16 0640 Significant Findings Laboratory Tests Test 05/17/16 05/17/16 03:50 06:40 Vancomycin Level Trough 11.4 MCG/ML Sodium Level 143 MEQ/L Potassium Level 3.7 MEQ/L Chloride Level 108 MEQ/L Carbon Dioxide Level 28.0 MEQ/L Anion Gap 7 MEQ/L Blood Urea Nitrogen 4 MG/DL Creatinine 0.52 MG/DL Estimat Glomerular Filtration 197 ML/MIN Rate Random Glucose 89 MG/DL Calcium Level 7.9 MG/DL Total Bilirubin 0.7 MG/DL Aspartate Amino Transf 64 U/L (AST/SGOT) Alanine Aminotransferase 46 U/L (ALT/SGPT) Alkaline Phosphatase 33 U/L Total Protein 5.8 GM/DL Albumin 2.1 GM/DL Laboratory Tests Test 05/17/16 05/17/16 03:50 06:40 Vancomycin Level Trough 11.4 MCG/ML (5.0-10.0) Chloride Level 108 MEQ/L (98-107) Blood Urea Nitrogen 4 MG/DL (7-18) Creatinine 0.52 MG/DL (0.60-1.30) Calcium Level 7.9 MG/DL (8.5-10.1) Aspartate Amino Transf 64 U/L (15-37) (AST/SGOT) Alkaline Phosphatase 33 U/L (45-117) Total Protein 5.8 GM/DL (6.4-8.2) Albumin 2.1 GM/DL (3.4-5.0) Imaging Last Impressions Chest X-Ray 05/17/16 0600 Signed Impressions: Service Date/Time: Tuesday, May 17, 2016 00:20 - CONCLUSION: Dense consolidation right middle and right lower lobe, unchanged from prior. Sergio Snow MD Chest CT 05/14/16 0000 Signed Impressions: Service Date/Time: May 13:26 - CONCLUSION: 1. Near-complete airspace consolidation of the right middle lobe and right lower lobe with mild associated volume loss. There is also a small right pleural effusion. 2. Subsegmental dense airspace consolidation in the left lower lobe medially with trace left pleural fluid. 3. There are geographic areas of groundglass attenuation in the right upper lobe. Although nonspecific the imaging findings are highly suspicious for an infectious process. Suggest follow up imaging to confirm resolution. 4. There is an enlarged subcarinal lymph node that is presumably reactive secondary to the pulmonary process. Gilson Wells MD PE at Discharge Exam: Pleasant white male in no distress. HEENT: Pupils equal, no scleral icterus Neck: No JVD Heart: RRR with no murmur Lungs: Slight rhonchi right lung and right mid posterior chest Abdomen: Soft, nontender Extremities: No edema Neuro:Neg Hospital Course Patient was admitted and begun on IV antibiotic therapy with IV Zosyn and IV Zithromax. A repeat CXR on 05-13-16 showed persistent sever and possible mildly increased airspace consolidation in the right lower lung zone and questionable consolidation present in the left lower lobe. An infectious disease consult was requested and Dr Mcmahan saw him. His dose of Zosyn was increased and Vancomycin was added on 05-14-16. He was maintained on Zithromax. Patient had a CT scan of the chest on 05-14-16 with the results mentioned above. Patient clinically improved and he became afebrile with his WBC being normal. He did have positive antibodies to Mycoplasma pneumonia organism. On 05-17-16 he was seen by Dr Mcmahan who cleared him to be discharged on 05-18-16. His IV Zithromax was changed to oral Levaquin 750mg daily and the Zosyn was changed to Ceftaroline 600mg twice a day IV. Case management was consulted with arrangement made for home administration of the antibiotics at home. Dr Mcmahan has recommended that the patient be seen by Dr Idalia Cortez in her office for followup on the pneumonia. It was recommended he continue the antibiotics for 2 weeks. He will followup with his PCP (Dr London) within one week also to have his blood pressure recheck. He was recommended to quit smoking permanently while he was in the hospital. Pt Condition on Discharge: Stable Discharge Disposition: Disch w/ Home Health Serv Discharge Instructions DIET: Follow Instructions for: Low Sodium Diet Activities you can perform: Regular-No Restrictions Follow up Referrals: Infectious Disease - 1 Week with Idalia Cabezas PCP Follow-up with Dr Hany London New Medications: Levofloxacin (Levaquin) 750 Mg Tab 750 MG PO DAILY Infection Days 14 Ref 0 TAB Discontinued Medications: Amoxicillin (Amoxicillin) 500 Mg Cap 500 MG PO TID Infection Ref 0 CAP Zanamivir Inhalation Powder Blister (Relenza Inhalation Powder Blister) 5 Mg/ Blister Cap 10 MG INH Q12HR Two inhalations = 10 mg Influenza #120 Ref 0 BLISTER Gera Dillon MD May 18, 2016 12:38
[2016-05-18] MEDS: VANCOMYCIN INJ 2,250 MG in SODIUM CHLORID 0.9% 500 ML INJ 500 ML IV SCH (18:12)
[2016-05-18] MEDS ORDERED: ALPRAZolam 0.25 MG TAB PO PRN (21:00)
[2016-05-18] MEDS ORDERED: LISINOPRIL 10 MG TAB PO SCH (21:30)
[2016-05-19] VITALS: BP 196/111; PULSE 93; RESP 20; TEMP 97.8; O2SAT 96
[2016-05-19] MEDS: TEMAZEPAM 15 MG CAP PO PRN (00:10)
[2016-05-19] MEDS: VANCOMYCIN INJ 2,250 MG in SODIUM CHLORID 0.9% 500 ML INJ 500 ML IV SCH ×2 (02:10→09:46)
[2016-05-19 04:00] VITALS: BP 175/98; PULSE 99; RESP 20; TEMP 96.7; O2SAT 95
[2016-05-19 07:55] VITALS: O2SAT 95
[2016-05-19 08:00] VITALS: BP 171/113; PULSE 99; RESP 20; TEMP 98; O2SAT 94
[2016-05-19] MEDS ORDERED: VANC1000P IV (08:13)
[2016-05-19] MEDS ORDERED: LISI10TA3 PO (08:14)
[2016-05-19] MEDS: ACETAMINOPHEN 325 MG TAB PO PRN (08:24)
[2016-05-19] MEDS: CEFTAROLINE INJ 600 MG in SODIUM CHLORIDE 0.9% INJ 100 ML IV SCH (08:25)
[2016-05-19] MEDS: SODIUM CHLOR 0.9% 1000 ML INJ 1,000 ML IV SCH (08:30)
--- NOTE | 2016-05-19 08:33 | HHI.PR ---
Subjective Remarks He was discharged yesterday but when the patient and his mom found the cost of the Ceftaroline that infectious disease ordered for him as an outpatient was too high his discharge was delayed because case management could not arrange along with [facility] pharmacy an alternative. I talked with [facility] pharmacy and the medical chief technician of [facility] (Dr Mcfarland) and they were looking into Vancomycin after discussion with infectious disease (Dr Mcmahan). His Ceftaroline was stopped yesterday and put on Vancomycin 2250mg every 8 hours yesterday by infectious disease. I talked with the hospital pharmacist and he states this is the only way it can be dosed in this individual due to his weight and age. He has no complaints other than he has been very anxious which is causing his blood pressure to go up. He wants to get out of the hospital today. I did start him on Lisinopril last night. Objective Vitals Vital Signs Date Time Temp Pulse Resp B/P Pulse Ox O2 Delivery O2 Flow Rate FiO2 05/19/16 08:00 98.0 99 20 171/113 94 05/19/16 07:55 95 21 05/19/16 04:00 96.7 99 20 175/98 95 05/19/16 00:00 97.8 93 20 196/111 96 05/18/16 20:00 97.6 96 20 184/109 94 05/18/16 19:40 95 21 05/18/16 16:00 98.7 95 18 157/94 94 05/18/16 12:00 97.6 90 18 169/97 98 05/18/16 05/18/16 05/19/16 15:00 23:00 07:00 Intake Total 2 ml 3291 ml 1422 ml Balance 2 ml 3291 ml 1422 ml Intake Oral 840 ml 680 ml IV Total 2 ml 2451 ml 742 ml # Voids 3 3 # Bowel Movements 0 0 Result Diagram: 05/15/16 0524 05/17/16 0640 Imaging Last Impressions Chest CT 05/14/16 0000 Signed Impressions: Service Date/Time: May 13:26 - CONCLUSION: 1. Near-complete airspace consolidation of the right middle lobe and right lower lobe with mild associated volume loss. There is also a small right pleural effusion. 2. Subsegmental dense airspace consolidation in the left lower lobe medially with trace left pleural fluid. 3. There are geographic areas of groundglass attenuation in the right upper lobe. Although nonspecific the imaging findings are highly suspicious for an infectious process. Suggest follow up imaging to confirm resolution. 4. There is an enlarged subcarinal lymph node that is presumably reactive secondary to the pulmonary process. Gilson Wells MD Chest X-Ray 05/13/16 0000 Signed Impressions: Service Date/Time: Friday, May 13, 2016 15:57 - CONCLUSION: 1. Persistent severe and possibly mildly increased airspace consolidation in the right lower lung zone. 2. Questionable consolidation is also present in the left lower lobe. Gilson Wells MD Last Impressions Chest X-Ray 05/13/16 0000 Signed Impressions: Service Date/Time: Friday, May 13, 2016 15:57 - CONCLUSION: 1. Persistent severe and possibly mildly increased airspace consolidation in the right lower lung zone. 2. Questionable consolidation is also present in the left lower lobe. Gilson Wells MD Last Impressions Chest X-Ray 05/12/16 0810 Signed Impressions: Service Date/Time: Thursday, May 12, 2016 08:37 - CONCLUSION: Right basilar pneumonia. Treatment and followup to resolution recommended. Grzegorz Villeda MD Objective Remarks Exam: Pleasant white male in no distress. HEENT: Pupils equal, no scleral icterus Neck: No JVD Heart: RRR with no murmur Lungs: Slight rhonchi right lung and right mid posterior chest Abdomen: Soft, nontender Extremities: No edema Neuro:Neg A/P Assessment and Plan Assessment: --Pneumonia --Sepsis--resolved --Nicotine dependence --Morbid obesity --Hypertension Plan: The current plan is to discharge him today on Vancomycin and I will just continue the current dose of 2250mg IV every 8 hours unless pharmacy suggests otherwise. He will need it for 13 days as per ID recommendation. He will also be on Levaquin 750mg daily for 14 days. I increased Lisinopril to 10mg twice a day and a script for this was written. He will followup with his PCP for his hypertension and Dr Idalia Cortez (Infectious disease) in one week. I did discuss the case with her this morning over the phone so she will be aware of his problems when she sees him. He has been recommended to stay on cigarettes. Gera Dillon MD May 19, 2016 08:33
[2016-05-19] MEDS ORDERED: LISINOPRIL 10 MG TAB PO SCH (09:00)
[2016-05-19 09:24] VITALS: RESP 18
[2016-05-19] MEDS: LEVOFLOXACIN 750 MG TAB PO SCH (09:47)
[2016-05-19] MEDS: HEPARIN SODIUM - SQ 10,000 UNITS/ML VIAL SQ SCH (09:47)
[2016-05-19] MEDS: SODIUM CHLORIDE 0.9% FLUSH 5 ML FLUSH FLUSH SCH (09:48)
[2016-05-19] MEDS ORDERED: PHARMACY ORDERED LAB XX ONE (17:45)
== END 2016-05-19 12:24 | disposition home or self-care (01) | DRG 871 ==
LOC: PHED 07:37 → PHEDA 10:54 → PH3B 12:07 → PH3A 12:07
PROVIDERS: ADMIT Legal Medicine; ATTEND Legal Medicine
DX: A41.9 Sepsis, unspecified organism (principal); J15.7 Pneumonia due to Mycoplasma pneumoniae; Z68.43 Body mass index [BMI] 50.0-59.9, adult; F17.210 Nicotine dependence, cigarettes, uncomplicated; J45.909 Unspecified asthma, uncomplicated; F12.90 Cannabis use, unspecified, uncomplicated; E66.01 Morbid (severe) obesity due to excess calories; G47.00 Insomnia, unspecified; I10 Essential (primary) hypertension
CPT/HCPCS: 71010; 71020; 71260; 76937; 80048; 80053; 80076; 80202; 81001; 83605; 85007; 85025; 85027; 86703; 86738; 87040; 87070; 87205; 87449; 93005; 94640; 94664; 94667; 94668; 96361; 96365; 96367; 96375; J0456; J0696; J0712; J1644; J2543; J2930; J3370; J7030; J7040; J7050; J7613; Q9967

== ENCOUNTER 2016-05-21 22:07 | Emergency (ER) | payer OTHER ==
[~2016-05-21] VITALS: Ht 180.3 cm; Wt 164.4 kg
[~2016-05-21 22:07] MED LIST changes: -AMOX500T2 PO; +LEVA750T PO; +LISI10TA3 PO; +VANC1000P IV
[2016-05-21 22:16] VITALS: BP 162/104; PULSE 128; RESP 20; TEMP 98.3
--- NOTE | 2016-05-21 23:25 | PD ---
HPI Chief Complaint: Final Assembler Problem Time Seen by Provider: 22:57 Travel History International Travel<30 days: No Contact w/Intl Traveler<30days: No Traveled to known affect area: No History of Present Illness HPI 25-year-old male who was discharged from the hospital 2 days ago with a midline and IV antibiotics for pneumonia, here for evaluation because his midline does not seem to be working properly. He reports that there is leakage around the midline, and it does not seem to be flushing properly. He denies pain at the midline site. He is on IV vancomycin every 8 hours as well as oral Levaquin 750 mg daily. [facility] Past Medical History Asthma: Yes (as a kid, but told grew out of it) Blood Disorders: No Cancer: No Cardiovascular Problems: Yes COPD: No Diminished Hearing: No Endocrine: No Genitourinary: No Hypertension: Yes Immune Disorder: No Musculoskeletal: No Neurologic: No Psychiatric: No Reproductive: No Respiratory: Yes (PNA this admit) Immunizations Current: Yes Sleep Apnea: No Influenza Vaccination: No Past Surgical History Surgical History: No Previous Surgery Social History Alcohol Use: Yes (Occ.) Tobacco Use: Yes (1/2 PPD) Substance Use: Yes (Marijuana) Allergies-Medications (Allergen,Severity, Reaction): Coded Allergies: No Known Allergies (Verified , 05/21/16) Reported Meds & Prescriptions Reported Meds & Active Scripts Active Lisinopril 10 Mg Tab 10 Mg PO BID Vancomycin Inj (Vancomycin HCl) 1,000 Mg Inj 2,250 Mg IV Q8HR 13 Days Levaquin (Levofloxacin) 750 Mg Tab 750 Mg PO DAILY 14 Days Review of Systems Except as stated in HPI: all other systems reviewed are Neg Physical Exam Narrative GENERAL: Well-developed, well-nourished, comfortable, no acute distress. SKIN: Left arm midline site with mild surrounding ecchymosis, no warmth or erythema. When the midline site is flushed, saline leaks around the insertion site. CARDIOVASCULAR: Regular rate and rhythm. No murmur appreciated. NEUROLOGICAL: Awake and alert. No obvious cranial nerve deficits. Motor grossly within normal limits. Normal speech. PSYCHIATRIC: Appropriate mood and affect; insight and judgment normal. Data Data Last Documented VS Vital Signs Date Time Temp Pulse Resp B/P Pulse Ox O2 Delivery O2 Flow Rate FiO2 05/21/16 23:05 Room Air 05/21/16 22:16 98.3 128 20 162/104 [facility] Medical Decision Making Medical Screen Exam Complete: Yes Emergency Medical Condition: Yes Differential Diagnosis Midline malfunction Narrative Course I discussed the case with [facility] admitting physician Dr. Dillon who is familiar with the patient. He is declining to admit the patient at this time. He recommends that I discharge the patient home with a peripheral IV where he can give his morning dose of IV vancomycin, then have him follow up with interventional radiology tomorrow for replacement midline. I have provided the patient and the patient's mother with information to follow up with interventional radiology tomorrow. He will be discharged home with a peripheral IV in his right forearm. Diagnosis Primary Impression: PICC line infiltration Qualified Code: T82.898A - PICC line infiltration, initial encounter Additional Instructions: Follow-up with interventional radiology tomorrow as discussed. Disposition: 01 DISCHARGE HOME Condition: Stable Justice Bedolla MD May 21, 2016 23:25
[2016-05-21 23:57] VITALS: BP 153/89
== END 2016-05-21 23:58 | disposition home or self-care (01) ==
LOC: PHED 22:07
DX: J18.9 Pneumonia, unspecified organism (principal); T82.898A Other specified complication of vascular prosthetic devices, implants and grafts, initial encounter; F17.210 Nicotine dependence, cigarettes, uncomplicated; F12.10 Cannabis abuse, uncomplicated
CPT/HCPCS: 99283

== ENCOUNTER 2016-05-22 12:59 | Day surgery (SDC) | payer OTHER ==
[2016-05-22 13:30] VITALS: BP 189/113; PULSE 115; RESP 22; TEMP 98.2; O2SAT 96
--- NOTE | 2016-05-22 15:11 | PD.RAD ---
Radiology Post PICC Prog Note Pre Procedure Diagnosis: (1) Sepsis (2) Pneumonia (3) PICC line infiltration Post Procedure Diagnosis: (1) Sepsis (2) Pneumonia (3) PICC line infiltration Procedure: Right PICC line placement Procedure Date: May 22, 2016 Supervising Radiologist Venkat Elise Proceduralist/Assist: Birgit Mota, RT(R), Dusty Vazquez RT(R)() Device Side: Right Japanese: 4 single lumen cm: 46 Catheter: Power PICC Plan of Activity Patient to Unit: ROPU Patient Condition: Good PICC line can be used immediately Venkat Elise MD May 22, 2016 15:11
[2016-05-22] MEDS ORDERED: SODIUM CHLORIDE 0.9% FLUSH 5 ML FLUSH IVF PRN ×2 (15:15)
--- NOTE | 2016-05-22 15:42 | RADRPT ---
EXAM DATE/TIME: 05/22/2016 13:41 [facility] COMPARISON: No previous studies available for comparison. INDICATIONS : Patient with pneumonia in neeed of new picc line placement for medication. MEDICAL HISTORY : HTN Hx of asthma as a child SURGICAL HISTORY : None. ENCOUNTER: Initial ACUITY: 2 weeks PAIN SCORE: 0/10 FLUORO TIME: 0.43 minutes IMAGE SERIES: 0 ACCESS: Right basilic vein DEVICE(S): 1.) 4 Welsh single lumen 46 cm Power PICC PROCEDURE : 1. Ultrasound guidance for venous catheterization. 2. Fluoroscopic guidance. 3. Ultrasound & fluoroscopic guided central venous Power PICC line placement. The risks, benefits and alternatives to the procedure were explained and verbal and written consent w as obtained. The site was prepped in sterile fashion. Full sterile technique was used, including ca p, mask, sterile gloves and gown and a large sterile sheet. Hand hygiene and 2% chlorhexidine prep w as utilized per protocol for cutaneous antisepsis with appropriate dry time for site. The skin and s ubcutaneous tissues were infiltrated with local anesthetic solution. Under direct ultrasound guidance, a suitable vein was accessed and a measuring guidewire was introduc ed and positioned in the central venous system. The ultrasound images depicting access guidance were saved and stored to PACS for permanent record. A Power Injectable PICC line was cut to prescribed length and introduced, positioned with tip at the cavoatrial junction level. The line was flushed and secured per protocol.CONCLUSION: 1. Uncomplicated central venous Power PICC line placement. 2. The PICC line can be used immediately. Venkat Elise MD on May 22, 2016 at 15:40 Board Certified Radiologist. This report was verified electronically.
[2016-05-23] MEDS ORDERED: SODIUM CHLORIDE 0.9% FLUSH 5 ML FLUSH IVF SCH (09:00)
== END 2016-05-22 15:20 | disposition home or self-care (01) ==
LOC: HROP 12:59 → HRIP 13:03 → HROP 15:20
PROVIDERS: ATTEND Emergency Medicine
DX: Z45.2 Encounter for adjustment and management of vascular access device (principal); A41.9 Sepsis, unspecified organism; J18.9 Pneumonia, unspecified organism; I10 Essential (primary) hypertension; J45.909 Unspecified asthma, uncomplicated
CPT/HCPCS: 36569; 76937; 77001; C1751; J1642

== ENCOUNTER 2017-04-21 21:48 | Emergency (ER) | payer OTHER ==
[~2017-04-21] VITALS: Ht 180.3 cm; Wt 185.9 kg
[2017-04-21 21:50] VITALS: BP 148/89; PULSE 102; RESP 16; TEMP 97.9; O2SAT 98
[2017-04-21 22:02] VITALS: BP 159/72; PULSE 99; RESP 20; O2SAT 99
[2017-04-21] MEDS ORDERED: LISI-515 PO (22:02)
[2017-04-21 22:59] LABS: AUTOMATED NEUTROPHIL # 8.5 TH/MM3 (1.8-7.7); BASOPHIL # 0.1 TH/MM3 (0-0.2); BASOPHIL % 0.5 % (0.0-2.0); EOSINOPHIL # 0.2 TH/MM3 (0-0.4); EOSINOPHIL % 1.4 % (0.0-4.0); HEMOGLOBIN 15.6 GM/DL (13.0-17.0); LYMPH % 24.4 % (9.0-44.0); LYMPHOCYTE # 3.1 TH/MM3 (1.0-4.8); MEAN CELL VOLUME 84.5 FL (80.0-100.0); MEAN CORPUSCULAR HEMOGLOBIN 29.3 PG (27.0-34.0); MEAN CORPUSCULAR HGB CONC 34.6 % (32.0-36.0); MEAN PLATELET VOLUME 10.4 FL (7.0-11.0); MONO % 7.3 % (0.0-8.0); MONOCYTE # 0.9 TH/MM3 (0-0.9); NEUT % 66.4 % (16.0-70.0); PLATELET COUNT 162 TH/MM3 (150-450); RED BLOOD COUNT 5.32 MIL/MM3 (4.50-5.90); RED CELL DISTRIBUTION WIDTH 13.4 % (11.6-17.2); WHITE BLOOD COUNT 12.8 TH/MM3 (4.0-11.0)
--- NOTE | 2017-04-21 23:10 | PD ---
HPI Chief Complaint: Chest Pain Time Seen by Provider: 21:58 Travel History International Travel<30 days: No Contact w/Intl Traveler<30days: No Traveled to known affect area: No History of Present Illness HPI Patient is a 26-year-old male who is coming in because for 2 weeks she's having palpitations racing heart feeling and chest pain. He went to an urgent care with a did a chest x-ray which showed he had an enlarged heart. He then went to see his primary care doctor who ordered blood work and a CT chest which confirmed he had an enlarged heart otherwise everything was coming back normal. Patient now comes in tonight he's having the same pain feeling in his left chest and irregular heartbeat patient has recently been started on lisinopril 20 mg Joey which is not alleviating his hypertension or his feeling in the chest. Denies nausea vomit diaphoresis the chest pain is localized to the left chest he does not radiate to the neck does not radiate to the arm and he did not take aspirin again lisinopril is not alleviating his symptoms he has an appointment on Wednesday to see Dr. gutierrez food service team member for further eval. PFSH Past Medical History Asthma: Yes (as a kid, but told grew out of it) Blood Disorders: No Cancer: No Cardiovascular Problems: Yes (HTN) COPD: No Diminished Hearing: No Endocrine: No Genitourinary: No Hypertension: Yes Immune Disorder: No Musculoskeletal: No Neurologic: No Psychiatric: No Reproductive: No Respiratory: Yes (PNA this admit) Immunizations Current: Yes Pneumonia: Yes Sleep Apnea: No Tetanus Vaccination: < 5 Years Influenza Vaccination: No Past Surgical History Tonsillectomy: Yes (Addenoids) Tympanostomy Tube: Yes Social History Alcohol Use: Yes (Occ.) Tobacco Use: No (VAPING) Substance Use: Yes (Marijuana) Allergies-Medications (Allergen,Severity, Reaction): Coded Allergies: No Known Allergies (Verified , 05/21/16) Reported Meds & Prescriptions Reported Meds & Active Scripts Active Ativan (Lorazepam) 0.5 Mg Tab 0.5 Mg PO Q6H PRN Ativan (Lorazepam) 0.5 Mg Tab 0.5 Mg PO Q8H PRN Reported Lisinopril 20 Mg Tab 20 Mg PO DAILY Review of Systems Except as stated in HPI: all other systems reviewed are Neg Cardiovascular: Positive: Chest Pain or Discomfort, Palpitations Physical Exam Narrative GENERAL: non toxic no vomit no diaphoresis or signs of ACS severely obese SKIN: Warm and dry. HEAD: Atraumatic. Normocephalic. EYES: Pupils equal and round. No scleral icterus. No injection or drainage. ENT: No nasal bleeding or discharge. Mucous membranes pink and moist. NECK: Trachea midline. No JVD. CARDIOVASCULAR: Regular rate and rhythm. HR 91-110 sinus RESPIRATORY: No accessory muscle use. Clear to auscultation. Breath sounds equal bilaterally. GASTROINTESTINAL: Abdomen soft, non-tender, nondistended. Hepatic and splenic margins not palpable. MUSCULOSKELETAL: Extremities without clubbing, cyanosis, or edema. No obvious deformities. NEUROLOGICAL: Awake and alert. No obvious cranial nerve deficits. Motor grossly within normal limits. Five out of 5 muscle strength in the arms and legs. Normal speech. PSYCHIATRIC: Appropriate mood and affect; insight and judgment normal. Data Data Last Documented VS Vital Signs Date Time Temp Pulse Resp B/P (MAP) Pulse Ox O2 Delivery O2 Flow Rate FiO2 04/22/17 02:00 04/22/17 01:19 97 18 98 Room Air 04/21/17 21:50 97.9 Orders Orders Electrocardiogram (04/21/17 22:21) Complete Blood Count With Diff (04/21/17 22:21) Basic Metabolic Panel (Bmp) (04/21/17 22:21) Ckmb (Isoenzyme) Profile (04/21/17 22:21) Troponin I (04/21/17 22:21) Chest, Single Ap (04/21/17 22:21) Iv Access Insert/Monitor (04/21/17 22:21) Ecg Monitoring (04/21/17 22:21) Oxygen Administration (04/21/17 22:21) Oximetry (04/21/17 22:21) Aspirin Chew (Aspirin Chew) (04/22/17 09:00) CKMB (04/21/17 22:25) CKMB% (04/21/17 22:25) Lorazepam (Ativan) (04/21/17 23:45) Ed Discharge Order (04/22/17 01:47) Labs Laboratory Tests Test 04/21/17 22:25 White Blood Count 12.8 TH/MM3 Red Blood Count 5.32 MIL/MM3 Hemoglobin 15.6 GM/DL Hematocrit 45.0 % Mean Corpuscular Volume 84.5 FL Mean Corpuscular Hemoglobin 29.3 PG Mean Corpuscular Hemoglobin Concent 34.6 % Red Cell Distribution Width 13.4 % Platelet Count 162 TH/MM3 Mean Platelet Volume 10.4 FL Neutrophils (%) (Auto) 66.4 % Lymphocytes (%) (Auto) 24.4 % Monocytes (%) (Auto) 7.3 % Eosinophils (%) (Auto) 1.4 % Basophils (%) (Auto) 0.5 % Neutrophils # (Auto) 8.5 TH/MM3 Lymphocytes # (Auto) 3.1 TH/MM3 Monocytes # (Auto) 0.9 TH/MM3 Eosinophils # (Auto) 0.2 TH/MM3 Basophils # (Auto) 0.1 TH/MM3 CBC Comment DIFF FINAL Differential Comment Blood Urea Nitrogen 12 MG/DL Creatinine 0.73 MG/DL Random Glucose 93 MG/DL Calcium Level 9.0 MG/DL Sodium Level 140 MEQ/L Potassium Level 3.8 MEQ/L Chloride Level 108 MEQ/L Carbon Dioxide Level 25.0 MEQ/L Anion Gap 7 MEQ/L Estimat Glomerular Filtration Rate 132 ML/MIN Total Creatine Kinase 279 U/L Creatine Kinase MB 6.3 NG/ML Troponin I LESS THAN 0.02 NG/ML MDM Medical Decision Making Medical Screen Exam Complete: Yes Emergency Medical Condition: Yes Interpretation(s) NSR rate 91 EKG Differential Diagnosis palpitation vs SVT vs arrhythmia, vs anxiety , Pericarditis Narrative Course trop negative pt remains slightly tachy and slightly HTN , I gave small dose of ativan to alleviate his " obsessing bout his heart palpitations" as per mother and pt. after ativan BP normalizing safe for discharge has cardiology appointment may 06 Diagnosis Primary Impression: Palpitation Patient Instructions: General Instructions, Heart Palpitations (ED) Scripts Lorazepam (Ativan) 0.5 Mg Tab 0.5 MG PO Q6H Y for ANXIETY AND/OR AGITATION, #10 TAB 0 Refills Prov: Ra Wright MD 04/22/17 Lorazepam (Ativan) 0.5 Mg Tab 0.5 MG PO Q8H Y for ANXIETY AND/OR AGITATION, #20 TAB 0 Refills Prov: Ra Wright MD 04/22/17 Disposition: 01 DISCHARGE HOME Condition: Good Ra Wright MD Apr 21, 2017 23:10
[2017-04-21 23:20] LABS: BLOOD UREA NITROGEN 12 MG/DL (7-18); CHLORIDE 108 MEQ/L (98-107); CREATININE 0.73 MG/DL (0.60-1.30); GLOMERULAR FILTRATION RATE 132 ML/MIN (>89); GLUCOSE,RANDOM 93 MG/DL (74-106); SODIUM (NA) 140 MEQ/L (136-145)
--- NOTE | 2017-04-21 23:20 | RADRPT ---
EXAM DATE/TIME: 04/21/2017 23:10 [facility] COMPARISON: CHEST SINGLE AP, May 17, 2016, 0:20. INDICATIONS : Chest pain. MEDICAL HISTORY : None. SURGICAL HISTORY : None. ENCOUNTER: Initial ACUITY: 1 day PAIN SCORE: 5/10 LOCATION: Bilateral chest FINDINGS: A single view of the chest demonstrates the lungs to be symmetrically aerated without evidence of mas s, infiltrate or effusion. The cardiomediastinal contours are unremarkable. Osseous structures are intact. CONCLUSION: No acute disease. Luis Rajput MD on April 21, 2017 at 23:18 Board Certified Radiologist. This report was verified electronically.
[2017-04-21 23:22] LABS: TROPONIN I LESS THAN 0.02 NG/ML (0.02-0.05)
[2017-04-21] MEDS ORDERED: LORazepam 0.5 MG TAB PO ONE (23:45)
[2017-04-21 23:51] VITALS: BP 181/79; PULSE 108; RESP 20; O2SAT 99
[2017-04-22 00:19] VITALS: BP 178/79; PULSE 90; RESP 20; O2SAT 98
[2017-04-22 01:19] VITALS: BP 165/79; PULSE 97; RESP 18; O2SAT 98
[2017-04-22] MEDS ORDERED: LORA-392 PO ×2 (01:51→01:55)
[2017-04-22] MEDS ORDERED: ASPIRIN 81 MG CHEW TAB CHEW SCH (09:00)
--- NOTE | 2017-04-22 14:39 | EKG ---
Date Performed: 04/21/2017 Time Performed: 22:00:26 PTAGE: 26 years EKG: Sinus rhythm NORMAL ECG NO PREVIOUS TRACING DOCTOR: Gera Banda Interpretating Date/Time 04/22/2017 14:33:35
== END 2017-04-22 02:00 | disposition home or self-care (01) ==
LOC: NEPE 21:48
DX: R00.2 Palpitations (principal); I10 Essential (primary) hypertension; J45.909 Unspecified asthma, uncomplicated; Z72.0 Tobacco use; F12.90 Cannabis use, unspecified, uncomplicated
CPT/HCPCS: 71045; 80048; 82550; 82552; 84484; 85025; 93005